=== PATIENT | male | born 1945 | race Hispanic/Latino ===

== ENCOUNTER 2017-01-27 20:07 | Inpatient (IN) | payer MEDICARE ==
[2017-01-27] MEDS ORDERED: NACL 0.9% 1000 ML 1,000 ML IV ONE (20:28)
--- NOTE | 2017-01-27 20:30 | Emergency Department Report ---
ED Shortness of Breath HPI - General Chief Complaint: Dyspnea/Respdistress Stated Complaint: SHORTNESS OF BREATH Time Seen by Provider: 01/27/17 20:22 Source: EMS Mode of arrival: Stretcher Limitations: No Limitations - History of Present Illness Initial Comments: 71-year-old male here with shortness of breath and dry mouth. Patient states she hasn't been had anything to drink for the last 6 days. He is unclear as to why this is. States his mouth is very dry and he doesn't feel like drinking. He also complains of some shortness of breath. Denies fevers chills nausea vomiting chest pain. He does complain of achiness all over. He also mentions that he has had some mild blurred vision. MD Complaint: shortness of breath -: Gradual Severity: mild Consistency: constant Improves With: nothing Worsens With: nothing Associated Symptoms: polydipsia - Related Data Allergies Allergy/AdvReac Type Severity Reaction Status Date / Time No Known Allergies Allergy Verified 04/06/16 01:45 ED Review of Systems ROS: Stated complaint: SHORTNESS OF BREATH Other details as noted in HPI Comment: All other systems reviewed and negative Constitutional: denies: chills, fever Eyes: denies: eye pain, eye discharge, vision change ENT: denies: ear pain, throat pain Respiratory: shortness of breath. denies: cough, wheezing Cardiovascular: denies: chest pain, palpitations Endocrine: no symptoms reported Gastrointestinal: denies: abdominal pain, nausea, diarrhea Genitourinary: denies: urgency, dysuria Musculoskeletal: denies: back pain, joint swelling, arthralgia Skin: denies: rash, lesions Neurological: denies: headache, weakness, paresthesias Psychiatric: denies: anxiety, depression Hematological/Lymphatic: denies: easy bleeding, easy bruising ED Past Medical Hx - Surgical History Past Surgical History?: No - Family History Family history: no significant - Social History Smoking Status: Current Every Day Smoker Substance Use Type: None ED Physical Exam - General Limitations: No Limitations General appearance: alert, in no apparent distress - Head Head exam: Present: atraumatic, normocephalic - Eye Eye exam: Present: normal appearance - ENT ENT exam: Present: normal orophraynx, mucous membranes dry (extremely dry) - Neck Neck exam: Present: normal inspection. Absent: lymphadenopathy - Respiratory Respiratory exam: Present: normal lung sounds bilaterally, other (tachypnea). Absent: respiratory distress, wheezes, rales - Cardiovascular Cardiovascular Exam: Present: normal rhythm, tachycardia. Absent: systolic murmur, diastolic murmur, rubs, gallop - GI/Abdominal GI/Abdominal exam: Present: soft, normal bowel sounds - Rectal Rectal exam: Present: deferred - Extremities Exam Extremities exam: Present: normal inspection - Back Exam Back exam: Present: normal inspection - Neurological Exam Neurological exam: Present: alert, oriented X3 - Psychiatric Psychiatric exam: Present: normal affect, normal mood - Skin Skin exam: Present: warm, dry, intact, normal color. Absent: rash ED Course Vital Signs 01/27/17 20:17 Temperature 97.6 F Pulse Rate 108 H Respiratory 13 Rate Blood Pressure 111/66 [Right] O2 Sat by Pulse 100 Oximetry ED Medical Decision Making - Lab Data Result diagrams: 01/27/17 20:45 01/27/17 20:45 - EKG Data -: EKG Interpreted by Me - EKG Data 01/27/17 20:27 Sinus tach 103 normal axis normal intervals and no ST-T wave changes - Medical Decision Making 71-year-old male here with dehydration and shortness of breath. Patient appears moderately dehydrated clinically. He is slightly tachycardic. It is unclear to me why he is not interested in consuming liquids at this point. Plan check labs UA chest x-ray EKG and plan to reassess. Plan to give IV fluids in the emergency department. Critical care attestation.: If time is entered above; I have spent that time in minutes in the direct care of this critically ill patient, excluding procedure time. ED Disposition Clinical Impression: Dehydration, Dyspnea Disposition: DC-09 OP ADMIT IP TO THIS HOSP Is pt being admited?: Yes Condition: Stable
[2017-01-27 21:14] LABS: Basophils % (Auto) 0.2 % (0.0-1.8); Eosinophils % (Auto) 0.4 % (0.0-4.3); Hemoglobin 7.1 gm/dl (11.8-15.2); Mean Corpuscular HGB Conc 33 % (32-34); Mean Corpuscular Hemoglobin 35 pg (28-32); Mean Corpuscular Volume 109 fl (84-94); Platelet Count 189 K/mm3 (140-440); Red Blood Count 2.02 M/mm3 (3.65-5.03); Red Cell Distribution Width 17.7 % (13.2-15.2); White Blood Count 7.2 K/mm3 (4.5-11.0)
[2017-01-27 21:24] LABS: Anion Gap 34 mmol/L; BUN/Creatinine Ratio 36.81; Blood Urea Nitrogen 81 mg/dL (9-20); Calcium 7.9 mg/dL (8.4-10.2); Carbon Dioxide 13 mmol/L (22-30); Chloride 103.7 mmol/L (98-107); Glucose 70 mg/dL (75-100); Potassium 3.6 mmol/L (3.6-5.0); Sodium 147 mmol/L (137-145)
[2017-01-27 21:26] LABS: Alanine Aminotransferase 12 units/L (7-56); Albumin 3.5 g/dL (3.9-5); Albumin/Globulin Ratio 1.5 %; Alkaline Phosphatase 38 units/L (35-129); Total Protein 5.8 g/dL (6.3-8.2)
[2017-01-27 21:27] LABS: Bilirubin,Direct < 0.2 mg/dL (0-0.2)
[2017-01-27] MEDS ORDERED: ZOFRAN IV PRN (23:42)
[2017-01-27] MEDS ORDERED: PROVENTIL IH PRN (23:42)
[2017-01-27] MEDS ORDERED: TYLENOL PO PRN (23:42)
[2017-01-27] MEDS ORDERED: DULCOLAX PR PRN (23:42)
[2017-01-27] MEDS ORDERED: MORPHINE IV PRN (23:42)
[2017-01-27] MEDS ORDERED: D5/0.45NS 1,000 ML IV SCH (23:45)
--- NOTE | 2017-01-27 23:45 | History and Physical Report ---
History of Present Illness Date of examination: 01/27/17 Date of admission: 01/27/17 Chief complaint: Generalized weakness Dry mouth Shortness of breath History of present illness: Patient is 71-year-old with no significant past history. He presents with generalized weakness, dry mouth and shortness of breath. He denies any chest pain. Patient states for the past 1 week he has not been drinking much and he feels very weak. In emergency department BUN 81 creatinine is 2.2. He has been started on IV fluids and will be admitted for acute kidney injury and dehydration. Past History Past Medical History: No medical history Past Surgical History: No surgical history Social history: alcohol abuse, full code. denies: smoking Family history: no significant family history Medications and Allergies Allergies Allergy/AdvReac Type Severity Reaction Status Date / Time No Known Allergies Allergy Verified 04/06/16 01:45 Home Medications Medication Instructions Recorded Confirmed Last Taken Type No Known Home Medications [No 01/27/17 01/27/17 Unknown History Reported Home Medications] Exam - Physical Exam Narrative exam: Gen appearance: Not in acute distress HEENT: normocephalic, atraumatic,dry tongue Neck: supple, no JVD, Lungs: Clear to auscultation bilaterally, no wheezes Heart :S1 and S2 regular, no murmurs, rubs or gallop Abdomen: Soft, non-tender, non-distended, normal bowel sounds. Extremities : No edema, no clubbing, or cyanosis Neuro: Awake, alert oriented 3, normal speech, no focal neurological signs - Constitutional Vitals: Temp Pulse Resp BP Pulse Ox 97.6 F 90 23 108/59 98 01/27/17 20:17 01/27/17 23:43 01/27/17 23:43 01/27/17 23:43 01/27/17 23:43 Results - Labs CBC & Chem 7: 01/27/17 20:45 01/27/17 20:45 Labs: Abnormal lab results 01/27/17 01/27/17 01/27/17 Range/Units 20:45 20:45 20:45 RBC 2.02 L (3.65-5.03) M/mm3 Hgb 7.1 L (11.8-15.2) gm/dl Hct 22.0 L (35.5-45.6) % MCV 109 H (84-94) fl MCH 35 H (28-32) pg RDW 17.7 H (13.2-15.2) % Lymph % (Auto) 12.0 L (13.4-35.0) % [place] % (Auto) 7.5 H (0.0-7.3) % Lymph # 0.9 L (1.2-5.4) K/mm3 Seg Neutrophils % 79.9 H (40.0-70.0) % Sodium 147 H (137-145) mmol/L Carbon Dioxide 13 L (22-30) mmol/L BUN 81 H (9-20) mg/dL Creatinine 2.2 H (0.8-1.5) mg/dL Glucose 70 L (75-100) mg/dL Calcium 7.9 L (8.4-10.2) mg/dL Total Protein 5.8 L (6.3-8.2) g/dL Albumin 3.5 L (3.9-5) g/dL Assessment and Plan Acute kidney injury secondary to ATN. Creatinine of 2.2. Admit to medical floor. Started on IV fluids Dehydration. iv fluids Shortness of breath. CXR ordered Hypernatremia. Repeat BMP in am Anemia hemoglobin of 7.1. Obtain stool occult blood. DVT prophylaxis with heparin Full CODE STATUS
[2017-01-27 23:58] LABS: Bilirubin,Urine NEG (Negative); Blood,Urine NEG (Negative); Ketones,Urine 20 mg/dL (Negative); Leukocyte Esterase,Urine NEG (Negative); Nitrite,Urine NEG (Negative); Protein,Urine <15 mg/dL mg/dL (Negative); RBC,Urine < 1.0 /HPF (0.0-6.0); Urobilinogen,Urine < 2.0 mg/dL (<2.0)
[2017-01-28] MEDS ORDERED: D5/0.45NS 1,000 ML IV ONE (00:08)
[2017-01-28] MEDS: HEPARIN SUB-Q SCH ×3 (05:43→23:31)
--- NOTE | 2017-01-28 07:28 | XRay Report ---
Single view chest: Compared to 04/06/16. History: Shortness of breath. Findings: Normal cardiomediastinal silhouette. Trachea is midline. No consolidation, pneumothorax or pleural effusion. Suspected old fractures left chest. There is also noted incompletely healed fracture proximal diaphysis of right humerus. Impression: Findings as detailed above.
--- NOTE | 2017-01-28 09:20 | Progress Note ---
Assessment and Plan Assessment and plan: Acute Blood loss Anemia Patient hemoglobin of 7.1 upon admission but on repeat CBC H&H 5.6/17.9 STAT Type and screen and transfusion 3 units of PRBC. Treat underlying cause and restore normal levels of red blood cells, hemoglobin to safe levels. IV Fluid GI consulted Closely monitor H&H Acute GI bleed Patient stool occult blood positive Started on IV Protonix GI consulted for possible Endoscope Closely monitor H&H Acute kidney injury/ Vasomotor Nephropathy Most likely due to dehydration IV fluid hydration, if serum creatinine does not improve with IV fluid we will consider nephrology. We will repeat BMP in the AM Dehydration IV fluid hydration Hypernatremia Most likely due to dehydartion Repeat BMP in am Closely monitor electrolytes Debility Physical therapy consulted DVT/GI prophylaxis Protonix IV Just SCD's due to active GI bleeding History Interval history: Patient complaining feeling dizzy, lightheadedness and tried Hospitalist Physical - Constitutional Vitals: Temp Pulse Resp BP Pulse Ox 97.7 F 95 H 20 113/61 98 01/28/17 00:47 01/28/17 00:47 01/28/17 00:47 01/28/17 00:47 01/28/17 00:47 General appearance: Present: no acute distress - EENT Eyes: Present: PERRL ENT: hearing intact - Neck Neck: Present: supple - Respiratory Respiratory effort: normal Respiratory: bilateral: CTA - Cardiovascular Heart rate: 75 Rhythm: regular Heart Sounds: Present: S1 & S2 - Extremities Extremities: no ischemia Peripheral Pulses: within normal limits - Abdominal General gastrointestinal: soft, non-tender - Integumentary Integumentary: Present: clear, warm, dry - Psychiatric Psychiatric: appropriate mood/affect - Neurologic Neurologic: CNII-XII intact - Allied Health Allied health notes reviewed: nursing Results - Labs CBC & Chem 7: 01/28/17 10:11 01/27/17 20:45 Labs: Laboratory Last Values WBC 7.2 K/mm3 (4.5-11.0) 01/27/17 20:45 RBC 2.02 M/mm3 (3.65-5.03) L 01/27/17 20:45 Hgb 7.1 gm/dl (11.8-15.2) L 01/27/17 20:45 Hct 22.0 % (35.5-45.6) L 01/27/17 20:45 MCV 109 fl (84-94) H 01/27/17 20:45 MCH 35 pg (28-32) H 01/27/17 20:45 MCHC 33 % (32-34) 01/27/17 20:45 RDW 17.7 % (13.2-15.2) H 01/27/17 20:45 Plt Count 189 K/mm3 (140-440) 01/27/17 20:45 Lymph % (Auto) 12.0 % (13.4-35.0) L 01/27/17 20:45 [place] % (Auto) 7.5 % (0.0-7.3) H 01/27/17 20:45 Eos % (Auto) 0.4 % (0.0-4.3) 01/27/17 20:45 Baso % (Auto) 0.2 % (0.0-1.8) 01/27/17 20:45 Lymph # 0.9 K/mm3 (1.2-5.4) L 01/27/17 20:45 [place] # 0.5 K/mm3 (0.0-0.8) 01/27/17 20:45 Eos # 0.0 K/mm3 (0.0-0.4) 01/27/17 20:45 Baso # 0.0 K/mm3 (0.0-0.1) 01/27/17 20:45 Seg Neutrophils % 79.9 % (40.0-70.0) H 01/27/17 20:45 Seg Neutrophils # 5.8 K/mm3 (1.8-7.7) 01/27/17 20:45 Sodium 147 mmol/L (137-145) H 01/27/17 20:45 Potassium 3.6 mmol/L (3.6-5.0) 01/27/17 20:45 Chloride 103.7 mmol/L (98-107) 01/27/17 20:45 Carbon Dioxide 13 mmol/L (22-30) L 01/27/17 20:45 Anion Gap 34 mmol/L 01/27/17 20:45 BUN 81 mg/dL (9-20) H 01/27/17 20:45 Creatinine 2.2 mg/dL (0.8-1.5) H 01/27/17 20:45 Estimated GFR 30 ml/min 01/27/17 20:45 BUN/Creatinine Ratio 36.81 % 01/27/17 20:45 Glucose 70 mg/dL (75-100) L 01/27/17 20:45 Calcium 7.9 mg/dL (8.4-10.2) L 01/27/17 20:45 Total Bilirubin 0.20 mg/dL (0.1-1.2) 01/27/17 20:45 Direct Bilirubin < 0.2 mg/dL (0-0.2) 01/27/17 20:45 Indirect Bilirubin 0.0 mg/dL 01/27/17 20:45 AST 10 units/L (5-40) 01/27/17 20:45 ALT 12 units/L (7-56) 01/27/17 20:45 Alkaline Phosphatase 38 units/L (35-129) 01/27/17 20:45 Troponin T < 0.010 ng/mL (0.00-0.029) 01/27/17 20:45 Total Protein 5.8 g/dL (6.3-8.2) L 01/27/17 20:45 Albumin 3.5 g/dL (3.9-5) L 01/27/17 20:45 Albumin/Globulin Ratio 1.5 % 01/27/17 20:45 Urine Color Yellow (Yellow) 01/27/17 23:43 Urine Turbidity Clear (Clear) 01/27/17 23:43 Urine pH 5.0 (5.0-7.0) 01/27/17 23:43 Ur Specific [place] 1.019 (1.003-1.030) 01/27/17 23:43 Urine Protein <15 mg/dl mg/dL (Negative) 01/27/17 23:43 Urine Glucose (UA) Neg mg/dL (Negative) 01/27/17 23:43 Urine Ketones 20 mg/dL (Negative) 01/27/17 23:43 Urine Blood Neg (Negative) 01/27/17 23:43 Urine Nitrite Neg (Negative) 01/27/17 23:43 Urine Bilirubin Neg (Negative) 01/27/17 23:43 Urine Urobilinogen < 2.0 mg/dL (<2.0) 01/27/17 23:43 Ur Leukocyte Esterase Neg (Negative) 01/27/17 23:43 Urine WBC (Auto) 1.0 /HPF (0.0-6.0) 01/27/17 23:43 Urine RBC (Auto) < 1.0 /HPF (0.0-6.0) 01/27/17 23:43
[2017-01-28 10:28] LABS: Basophils % (Auto) 0.2 % (0.0-1.8); Mean Corpuscular HGB Conc 32 % (32-34); Mean Corpuscular Hemoglobin 35 pg (28-32); Mean Corpuscular Volume 110 fl (84-94); Platelet Count 165 K/mm3 (140-440); Red Blood Count 1.63 M/mm3 (3.65-5.03); Red Cell Distribution Width 17.4 % (13.2-15.2); White Blood Count 5.9 K/mm3 (4.5-11.0)
[2017-01-28 10:31] LABS: Hematocrit 17.9 % (35.5-45.6); Hemoglobin 5.6 gm/dl (11.8-15.2)
[2017-01-28] MEDS ORDERED: NACL 0.9% 500 ML 500 ML IV ONE (10:35)
[2017-01-28] MEDS ORDERED: NACL 0.9% 1000 ML 1,000 ML IV SCH (11:00)
--- NOTE | 2017-01-28 11:15 | Gastroenterology Consultation ---
History of Present Illness - Reason for Consult Consult date: 01/28/17 GI bleed Requesting physician: KASSIDY AMAYA - History of Present Illness Mr. Her is a 71 y/o male admitted with progressive weakness and dehydration. On admission he was found to be anemic with heme positive stool. Overnight the patient had large loose black BM and H/H further decrease to 5.6/ 17. He states he has not noted black stools, but many years ago when he was consistently drinking Vodka daily, he did have a similar episode. NO abdominal pain or F/C. He is not on any home medications but occasionally takes Goody powders. He drinks beer daily, none x 1 week. NO prior EGD. Past History Past Medical History: No medical history, other (GI bleed years ago.) Past Surgical History: No surgical history Social history: alcohol abuse, full code. denies: smoking Family history: no significant family history Medications and Allergies Allergies Allergy/AdvReac Type Severity Reaction Status Date / Time No Known Allergies Allergy Verified 04/06/16 01:45 Home Medications Medication Instructions Recorded Confirmed Last Taken Type No Known Home Medications [No 01/27/17 01/27/17 Unknown History Reported Home Medications] Active Meds: Active Medications Acetaminophen (Tylenol) 650 mg PO Q4H PRN PRN Reason: Pain MILD(1-3)/Fever >100.5/LUND Albuterol (Proventil) 2.5 mg IH Q3HRT PRN PRN Reason: Shortness Of Breath Bisacodyl (Dulcolax) 10 mg OK QDAY PRN PRN Reason: Constipation unrelieved by MOM Heparin Sodium (Porcine) (Heparin) 5,000 unit SUB-Q Q8HR CANDY Last Admin: 01/28/17 05:43 Dose: 5,000 unit Dextrose/Sodium Chloride (D5/0.45ns) 1,000 mls @ 100 mls/hr IV DIRECT CANDY Last Admin: 01/28/17 00:51 Dose: 100 mls/hr Sodium Chloride (Nacl 0.9% 500 Ml) 500 mls @ 0 mls/hr IV ONCE ONE PRN Reason: As Directed Stop: 01/28/17 10:36 Sodium Chloride (Nacl 0.9% 1000 Ml) 1,000 mls @ 100 mls/hr IV DIRECT CANDY Morphine Sulfate (Morphine) 2 mg IV Q4H PRN PRN Reason: Pain, Moderate (4-6) Ondansetron HCl (Zofran) 4 mg IV Q6H PRN PRN Reason: nausea or vomiting Pantoprazole Sodium (Protonix) 40 mg IV BID [facility] Review of Systems - Review of Systems All systems: negative Constitutional: fatigue, weakness, poor appetite Gastrointestinal: melena Exam - Constitutional Vital Signs: Temp Pulse Resp BP Pulse Ox 98.1 F 79 20 100/62 98 01/28/17 10:00 01/28/17 10:00 01/28/17 10:00 01/28/17 10:00 01/28/17 10:00 General appearance: no acute distress - EENT Eyes: EOM intact ENT: hearing intact - Neck Neck: supple - Respiratory Respiratory: bilateral: CTA - Cardiovascular Rhythm: regular Heart Sounds: Present: S1 & S2 Extremities: pulses intact - Gastrointestinal General gastrointestinal: Present: soft, non-tender, non-distended, normal bowel sounds - Integumentary Integumentary: Present: warm, dry, pale - Neurologic Neurological: alert and oriented x3 - Psychiatric Psychiatric: appropriate mood/affect, cooperative - Labs CBC & Chem 7: 01/28/17 10:11 01/27/17 20:45 Lab Results: Laboratory Results - last 24 hr 01/27/17 01/28/17 23:43 10:11 WBC 5.9 RBC 1.63 L Hgb 5.6 L* Hct 17.9 L* MCV 110 H MCH 35 H MCHC 32 RDW 17.4 H Plt Count 165 Lymph % (Auto) 19.6 [place] % (Auto) 7.0 Eos % (Auto) 1.0 Baso % (Auto) 0.2 Lymph # 1.1 L [place] # 0.4 Eos # 0.1 Baso # 0.0 Seg Neutrophils % 72.2 H Seg Neutrophils # 4.2 Urine Color Yellow Urine Turbidity Clear Urine pH 5.0 Ur Specific [place] 1.019 Urine Protein <15 mg/dl Urine Glucose (UA) Neg Urine Ketones 20 Urine Blood Neg Urine Nitrite Neg Urine Bilirubin Neg Urine Urobilinogen < 2.0 Ur Leukocyte Esterase Neg Urine WBC (Auto) 1.0 Urine RBC (Auto) < 1.0 Assessment and Plan 1. Melena 2. Macrocytic anemia 3. ARF 4. Hypernatremia -Keep NPO, patient will need to be transfused and will tentatively plan for EGD later today. -PPI gtt -No NSAIDS or blood thinning meds. -Further recommendations to follow EGD. -
[2017-01-28] MEDS ORDERED: PROTONIX IV SCH (12:00)
[2017-01-28] MEDS: PROTONIX 80 MG in NACL 0.9% 100 ML IV SCH (14:16)
[2017-01-28] MEDS ORDERED: WATER FOR IRRIG STERILE IR ONE (15:40)
[2017-01-28] MEDS ORDERED: NACL 0.9% 1000 ML 1,000 ML ONE (16:08)
[2017-01-28] MEDS ORDERED: DIPRIVAN 10 MG/ML IV ONE (16:25)
--- NOTE | 2017-01-28 16:25 | Admit Criteria Form ---
Admission Criteria Documentation: DEHYDRATION Clinical Indications for Admission to Inpatient Care ([place]/check or initial the applicable condition/criteria) Admission is indicated for 1 or more of the following (1)(2)(3) [ ]I. Serious cause for dehydration requiring acute hospitalization(e.g., bowel obstruction, increased intracranial pressure, infectious cause) [X]II. Inpatient admission required [A] rather than observation care (see Dehydration:Observation Care guideline as appropriate)because of ANY ONE of the following (4)(5) [ ]a) Vomiting that is severe or persistent [X]a) Dehydration that is severe or persistent [ ]a) IV fluid required rather than oral rehydration to replace significant ongoing(eg, for greater than 24 hours)losses(greater than3 L/ [id number]) (6) [ ]a) Parenteral nutrition regimen that must be implemented on inpatient basis [ ]a) Other condition, treatment, or monitoring requiring inpatient admission Extended stay beyond goal length of stay may be needed for (1)(2)(3)(9) [ ]a) Chronic severe dehydration [ ]b) Persistent vital sign changes, severe electrolyte imbalance, or diagnosed cause of dehydration that requires continued hospitalization(e.g., bowel obstruction, increased intracranial pressure) [ ]c) Severe comorbid illness (e.g., renal failure, heart failure, poorly controlled diabetes) [ ]d) Older patients (75 years or older) The original [employer] content created by [employer] has been revised. The portions of the content which have been revised are identified through the use of italic text or in bold, and [facility] has neither reviewed nor approved the modified material. All other unmodified content is copyright [employer]. Please see references footnoted in the original [employer] edition 2017 Admission Criteria Met: Yes
[2017-01-28] MEDS ORDERED: AMIDATE IV ONE (16:30)
--- NOTE | 2017-01-28 16:44 | Anesthesia Consultation ---
Anesthesia Consult and Med Hx Date of service: 01/28/17 - Airway Anesthetic Teeth Evaluation: Poor (lots missing and black) ROM Head & Neck: Adequate Mental/Hyoid Distance: Adequate Mallampati Class: Class II Intubation Access Assessment: Probably Good - Pulmonary Exam CTA: Yes - Cardiac Exam Cardiac Exam: RRR - Pre-Operative Health Status ASA Pre-Surgery Classification: ASA3 Proposed Anesthetic Plan: MAC - Central Nervous System Hx Psychiatric Problems: No - Hematic Hx Anemia: Yes - Other Systems Hx Alcohol Use: Yes (1 beer a day)
--- NOTE | 2017-01-28 16:44 | Anesthesia Day of Surgery ---
Anesthesia Day of Surgery - Day of Surgery Patient Examined: Yes Patient H&P Reviewed: Yes Patient is NPO: Yes
--- NOTE | 2017-01-28 16:55 | Post Operative Note ---
Pre-op diagnosis: GI BLEED Post-op diagnosis: same Findings: RGD: hiatal hernia - probable Barretts' - gastritis - 8-10 mm white based slightly cratered ulcer duodenum bulb (bx's) - negative other Procedure: EGD Anesthesia: MAC Surgeon: JASMYNE ROSE Estimated blood loss: none Pathology: list Specimen disposition: to lab Condition: stable Disposition: floor
[2017-01-28 19:39] VITALS: BP 102/72
[2017-01-28 23:35] LABS: Hematocrit 23.8 % (35.5-45.6); Hemoglobin 7.7 gm/dl (11.8-15.2)
--- NOTE | 2017-01-28 23:42 | Operative Report ---
PROCEDURE: EGD with cold biopsies. INDICATION: 1. Anemia. 2. GI bleed. MEDICATIONS: Propofol per CHEMICAL INSPECTOR. COMPLICATIONS: None. DESCRIPTION OF PROCEDURE: The patient brought to the procedure suite. The patient had the procedure discussed with him at length. All risks, complications, and benefits discussed, which the patient signed for the procedure to be performed. The patient placed in left decubitus position. Mouth block was placed in the patient's oral cavity. After adequate sedation medication as above, an endoscope was introduced into the mouth and brought to the level of the second portion of duodenum. Retroflexion view performed. The patient's vital signs remained stable throughout the procedure. FINDINGS: There was noted to be a medium hiatal hernia at GE junction. 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 The esophagus otherwise appeared to be normal. Mild antral gastritis noted. Biopsies were taken and sent to Pathology. The remaining stomach otherwise appeared to be normal. There was 8-10 mm mainly white-based ulcer with cratered center, but no active stigmata noted in the distal duodenal bulb. Biopsies were taken and sent to Pathology. The remaining duodenum otherwise appeared to be normal. Retroflexion view performed in the stomach showed no other pathology other than noted above. The patient tolerated the procedure well. No complications during the procedure. IMPRESSION: 1. Hiatal hernia. 2. Possible Brandt's. 3. Gastritis, biopsies performed. 4. Ulcer duodenal bulb, probable source of bleeding, biopsy performed. 5. Otherwise, normal esophagogastroduodenoscopy. RECOMMENDATIONS: 1. Follow up biopsy results. 2. Stool for H. pylori, if positive, treat. 3. PPI IV b.i.d. 4. Follow hematocrit and transfuse as needed. 5. We will follow up in a.m. JOB# [id number] CAB/NTS
[2017-01-29] MEDS ORDERED: PROTONIX 80 MG in NACL 0.9% 100 ML IV SCH (01:00)
[2017-01-29 04:42] LABS: Basophils % (Auto) 0.4 % (0.0-1.8); Hemoglobin 8.3 gm/dl (11.8-15.2); Mean Corpuscular HGB Conc 33 % (32-34); Mean Corpuscular Hemoglobin 33 pg (28-32); Mean Corpuscular Volume 98 fl (84-94); Platelet Count 139 K/mm3 (140-440); Red Blood Count 2.55 M/mm3 (3.65-5.03); Red Cell Distribution Width 18.4 % (13.2-15.2); White Blood Count 4.9 K/mm3 (4.5-11.0)
[2017-01-29 04:57] LABS: Alanine Aminotransferase 8 units/L (7-56); Albumin 2.7 g/dL (3.9-5); Albumin/Globulin Ratio 1.5 %; Alkaline Phosphatase 32 units/L (35-129); BUN/Creatinine Ratio 27.14; Bilirubin,Direct < 0.2 mg/dL (0-0.2); Bilirubin,Indirect 0.2 mg/dL; Blood Urea Nitrogen 19 mg/dL (9-20); Calcium 7.4 mg/dL (8.4-10.2); Carbon Dioxide 22 mmol/L (22-30); Chloride 105.2 mmol/L (98-107); Glucose 95 mg/dL (75-100); Potassium 3.7 mmol/L (3.6-5.0); Sodium 137 mmol/L (137-145); Total Protein 4.5 g/dL (6.3-8.2)
[2017-01-29 05:02] LABS: Anion Gap 14 mmol/L
[2017-01-29] MEDS: PROTONIX 80 MG in NACL 0.9% 100 ML IV SCH ×2 (05:03→05:06)
[2017-01-29] MEDS: HEPARIN SUB-Q SCH ×2 (05:14→13:33)
--- NOTE | 2017-01-29 10:06 | Progress Note ---
Hospitalist Physical - Constitutional Vitals: Temp Pulse Resp BP Pulse Ox 97.6 F 72 16 102/72 100 01/28/17 19:31 01/28/17 19:31 01/28/17 19:31 01/28/17 19:31 01/29/17 08:10 General appearance: Present: no acute distress Results - Labs CBC & Chem 7: 01/29/17 04:10 01/29/17 04:10 Labs: Laboratory Last Values WBC 4.9 K/mm3 (4.5-11.0) 01/29/17 04:10 RBC 2.55 M/mm3 (3.65-5.03) L 01/29/17 04:10 Hgb 8.3 gm/dl (11.8-15.2) L 01/29/17 04:10 Hct 25.0 % (35.5-45.6) L 01/29/17 04:10 MCV 98 fl (84-94) H 01/29/17 04:10 MCH 33 pg (28-32) H 01/29/17 04:10 MCHC 33 % (32-34) 01/29/17 04:10 RDW 18.4 % (13.2-15.2) H 01/29/17 04:10 Plt Count 139 K/mm3 (140-440) L 01/29/17 04:10 Lymph % (Auto) 23.1 % (13.4-35.0) 01/29/17 04:10 [place] % (Auto) 8.3 % (0.0-7.3) H 01/29/17 04:10 Eos % (Auto) 1.0 % (0.0-4.3) 01/29/17 04:10 Baso % (Auto) 0.4 % (0.0-1.8) 01/29/17 04:10 Lymph # 1.1 K/mm3 (1.2-5.4) L 01/29/17 04:10 [place] # 0.4 K/mm3 (0.0-0.8) 01/29/17 04:10 Eos # 0.0 K/mm3 (0.0-0.4) 01/29/17 04:10 Baso # 0.0 K/mm3 (0.0-0.1) 01/29/17 04:10 Seg Neutrophils % 67.2 % (40.0-70.0) 01/29/17 04:10 Seg Neutrophils # 3.3 K/mm3 (1.8-7.7) 01/29/17 04:10 Sodium 137 mmol/L (137-145) D 01/29/17 04:10 Potassium 3.7 mmol/L (3.6-5.0) 01/29/17 04:10 Chloride 105.2 mmol/L (98-107) 01/29/17 04:10 Carbon Dioxide 22 mmol/L (22-30) D 01/29/17 04:10 Anion Gap 14 mmol/L 01/29/17 04:10 BUN 19 mg/dL (9-20) 01/29/17 04:10 Creatinine 0.7 mg/dL (0.8-1.5) L D 01/29/17 04:10 Estimated GFR > 60 ml/min 01/29/17 04:10 BUN/Creatinine Ratio 27.14 % 01/29/17 04:10 Glucose 95 mg/dL (75-100) 01/29/17 04:10 Calcium 7.4 mg/dL (8.4-10.2) L 01/29/17 04:10 Magnesium 2.40 mg/dL (1.7-2.3) H 01/29/17 04:10 Total Bilirubin 0.40 mg/dL (0.1-1.2) 01/29/17 04:10 Direct Bilirubin < 0.2 mg/dL (0-0.2) 01/29/17 04:10 Indirect Bilirubin 0.2 mg/dL 01/29/17 04:10 AST 11 units/L (5-40) 01/29/17 04:10 ALT 8 units/L (7-56) 01/29/17 04:10 Alkaline Phosphatase 32 units/L (35-129) L 01/29/17 04:10 Troponin T < 0.010 ng/mL (0.00-0.029) 01/27/17 20:45 Total Protein 4.5 g/dL (6.3-8.2) L D 01/29/17 04:10 Albumin 2.7 g/dL (3.9-5) L 01/29/17 04:10 Albumin/Globulin Ratio 1.5 % 01/29/17 04:10 Urine Color Yellow (Yellow) 01/27/17 23:43 Urine Turbidity Clear (Clear) 01/27/17 23:43 Urine pH 5.0 (5.0-7.0) 01/27/17 23:43 Ur Specific [place] 1.019 (1.003-1.030) 01/27/17 23:43 Urine Protein <15 mg/dl mg/dL (Negative) 01/27/17 23:43 Urine Glucose (UA) Neg mg/dL (Negative) 01/27/17 23:43 Urine Ketones 20 mg/dL (Negative) 01/27/17 23:43 Urine Blood Neg (Negative) 01/27/17 23:43 Urine Nitrite Neg (Negative) 01/27/17 23:43 Urine Bilirubin Neg (Negative) 01/27/17 23:43 Urine Urobilinogen < 2.0 mg/dL (<2.0) 01/27/17 23:43 Ur Leukocyte Esterase Neg (Negative) 01/27/17 23:43 Urine WBC (Auto) 1.0 /HPF (0.0-6.0) 01/27/17 23:43 Urine RBC (Auto) < 1.0 /HPF (0.0-6.0) 01/27/17 23:43 Blood Type AB POSITIVE 01/28/17 11:39 Antibody Screen Negative 01/28/17 11:39 Crossmatch See Detail 01/28/17 11:39
[2017-01-29 10:44] LABS: Hematocrit 29.4 % (35.5-45.6); Hemoglobin 9.4 gm/dl (11.8-15.2)
--- NOTE | 2017-01-29 13:03 | Discharge Summary ---
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 Reason for admission: generalized weakness and shortness of breath Condition: Fair Pertinent studies: Chest x-ray; all fractures of the left chest pain completely healed fractures of proximal diaphysis of the right humerus EGD with cold biopsies; Hiatal hernia Possible Brandt's Gastritis biopsies done Ulcer duodenal bulb probably the source of bleeding status post biopsy Rest of it is normal Hospital course: 71-year-old male patient with no significant past medical history except for alcohol abuse was admitted through emergency room with worsening shortness of breath and chills and general weakness Initially evaluated and noted to have anemia with hemoglobin of 7.1 Patient was admitted to the hospital symptomatically managed, stool for occult blood was positive, repeat hemoglobin in the morning was 5.4, requiring 3 units of PRBC transfusion GI has evaluated the patient, patient underwent EGD findings of which are as mentioned above Patient strongly advised to avoid NSAIDs, smoking cessation counseling done advised to quit smoking Counseling done patient strongly advised to quit alcohol Today he is comfortable in bed hemoglobin is stable more than 9, no evidence of bleeding, vital signs are stable Ambulatory and tolerating oral nutrition, physical examination at the time of discharge no new changes Patient is hemodynamically and clinically stable for discharge, his management consult for assistance with discharge Final diagnosis; Acute blood loss anemia requiring blood transfusion Acute GI bleeding resolved Acute gastritis status post biopsy Ongoing tobacco use Alcohol abuse Moderate to severe protein calorie malnutrition Disposition: DC-01 TO HOME OR SELFCARE Time spent for discharge: 31 min Core Measure Documentation - Palliative Care Palliative Care/ Comfort Measures: Not Applicable - Core Measures Any of the following diagnoses?: none Exam - Constitutional Vitals: Temp Pulse Resp BP Pulse Ox 97.6 F 72 20 102/72 100 01/28/17 19:31 01/28/17 19:31 01/29/17 10:00 01/28/17 19:31 01/29/17 08:10 General appearance: Present: no acute distress, well-nourished - EENT Eyes: Present: PERRL, EOM intact - Neck Neck: Present: supple, normal ROM - Respiratory Respiratory effort: normal Respiratory: negative: rales, rhonchi, wheezing - Cardiovascular Rhythm: regular Heart Sounds: Present: S1 & S2 - Extremities Extremities: no ischemia, No edema Peripheral Pulses: within normal limits - Abdominal General gastrointestinal: Present: soft, non-tender, non-distended, normal bowel sounds - Integumentary Integumentary: Present: clear, warm - Musculoskeletal Musculoskeletal: strength equal bilaterally - Psychiatric Psychiatric: appropriate mood/affect, cooperative - Neurologic Neurologic: CNII-XII intact, moves all extremities Plan Activity: no restrictions Diet: regular, other (advised to quit alcohol intyake) Additional Instructions: Quit alcohol intake. If you have any vomiting blood or blood in the stool ,contact MD or go to ER Follow up with: PRIMARY CARE, [Primary Care Provider] - 3-5 Days JASMYNE ROSE MD [Staff Physician] - 7 Days Prescriptions: RX: Folic Acid [Folvite] 1 mg PO QDAY #30 tablet Pantoprazole [Protonix] 40 mg PO BID #60 tablet RX: Thiamine [Vitamin B-1] 100 mg PO QDAY #30 tablet
== END 2017-01-29 17:20 | disposition home or self-care (01) | DRG 377 ==
LOC: ED 20:07 → CC2 23:42
PROVIDERS: ADMIT Internal Medicine; ATTEND Internal Medicine
PROC: 30233N1 Transfusion of Nonautologous Red Blood Cells into Peripheral Vein, Percutaneous Approach (ICD-10-PCS; principal; 2017-01-28)
PROC: 0DB68ZX Excision of Stomach, Via Natural or Artificial Opening Endoscopic, Diagnostic (ICD-10-PCS; 2017-01-28)
PROC: 0DB98ZX Excision of Duodenum, Via Natural or Artificial Opening Endoscopic, Diagnostic (ICD-10-PCS; 2017-01-28)
DX: K26.4 Chronic or unspecified duodenal ulcer with hemorrhage (principal); N17.0 Acute kidney failure with tubular necrosis; E43 Unspecified severe protein-calorie malnutrition; E87.0 Hyperosmolality and hypernatremia; D62 Acute posthemorrhagic anemia; E86.0 Dehydration; F17.210 Nicotine dependence, cigarettes, uncomplicated; F10.10 Alcohol abuse, uncomplicated; K44.9 Diaphragmatic hernia without obstruction or gangrene; K22.70 Barrett's esophagus without dysplasia; K29.70 Gastritis, unspecified, without bleeding; Z71.6 Tobacco abuse counseling; Z71.41 Alcohol abuse counseling and surveillance of alcoholic; Z68.21 Body mass index [BMI] 21.0-21.9, adult
CPT/HCPCS: 36415; 71010; 80048; 80074; 81001; 82270; 83735; 84484; 85014; 85018; 85025; 86850; 86900; 86901; 86920; 88305; 88342; 93005; 93010; 94760; 96360; C9113; G8978-GP; G8979-GP; G8980-GP; J1644; J2704; J7030; J7040; P9016

== ENCOUNTER 2020-01-07 12:54 | Inpatient (IN) | payer MEDICARE ==
[2020-01-07] MEDS ORDERED: SODIUM CHLORIDE 0.9% 1000 ML IV SOLN IV ONE (13:27)
--- NOTE | 2020-01-07 13:42 | Emergency Department Report ---
ED General Adult HPI - General Chief complaint: Weakness Stated complaint: SOB Time Seen by Provider: 01/07/20 13:16 Source: EMS Mode of arrival: Stretcher Limitations: No Limitations - History of Present Illness Initial comments: The patient presents to the emergency department with a chief complaint of feeling weak. Patient states he normally takes multiple walks a day but today he felt really weak and could not complete his walk. The patient has a history of COPD. Patient's O2 sats on EMS arrival 88% on room air. Patient's blood pressure was 89/59 upon EMS arrival. Patient received 800 cc of fluid in route with his blood pressure increased into approximately 97/50 -: Sudden Severity scale (0 -10): 0 Consistency: constant Improves with: none Worsens with: none Associated Symptoms: denies other symptoms Treatments Prior to Arrival: none - Related Data Previous Rx's Medication Instructions Recorded Last Taken Type Folic Acid [Folvite] 1 mg PO QDAY #30 tablet 01/29/17 Unknown Rx Pantoprazole [Protonix] 40 mg PO BID #60 tablet 01/29/17 Unknown Rx Thiamine [Vitamin B-1] 100 mg PO QDAY #30 tablet 01/29/17 Unknown Rx Allergies Allergy/AdvReac Type Severity Reaction Status Date / Time No Known Allergies Allergy Verified 04/06/16 01:45 ED Review of Systems ROS: Stated complaint: SOB Other details as noted in HPI Constitutional: weakness. denies: chills, fever Eyes: denies: eye pain, eye discharge, vision change ENT: denies: ear pain, throat pain Respiratory: denies: cough, shortness of breath, wheezing Cardiovascular: denies: chest pain, palpitations Endocrine: no symptoms reported Gastrointestinal: denies: abdominal pain, nausea, diarrhea Genitourinary: denies: urgency, dysuria Musculoskeletal: denies: back pain, joint swelling, arthralgia Skin: denies: rash, lesions Neurological: denies: headache, weakness, paresthesias Psychiatric: denies: anxiety, depression Hematological/Lymphatic: denies: easy bleeding, easy bruising ED Past Medical Hx - Social History Smoking Status: Former Smoker - Medications Home Medications: Home Medications Medication Instructions Recorded Confirmed Last Taken Type Folic Acid [Folvite] 1 mg PO QDAY #30 tablet 01/29/17 Unknown Rx Pantoprazole [Protonix] 40 mg PO BID #60 tablet 01/29/17 Unknown Rx Thiamine [Vitamin B-1] 100 mg PO QDAY #30 tablet 01/29/17 Unknown Rx ED Physical Exam - General Limitations: No Limitations General appearance: alert, in no apparent distress - Head Head exam: Present: atraumatic, normocephalic - Eye Eye exam: Present: normal appearance, PERRL, EOMI - ENT ENT exam: Present: mucous membranes moist - Neck Neck exam: Present: normal inspection - Respiratory Respiratory exam: Present: decreased breath sounds. Absent: respiratory distress - Cardiovascular Cardiovascular Exam: Present: normal rhythm, tachycardia. Absent: systolic murmur, diastolic murmur, rubs, gallop - GI/Abdominal GI/Abdominal exam: Present: soft, normal bowel sounds. Absent: distended, tenderness - Rectal Rectal exam: Present: deferred - Extremities Exam Extremities exam: Present: normal inspection - Back Exam Back exam: Present: normal inspection - Neurological Exam Neurological exam: Present: alert, oriented X3, CN II-XII intact. Absent: motor sensory deficit - Psychiatric Psychiatric exam: Present: normal affect, normal mood - Skin Skin exam: Present: warm, dry, intact, normal color. Absent: rash ED Course Vital Signs 01/07/20 01/07/20 01/07/20 13:10 14:28 19:55 Temperature 98.4 F Pulse Rate 101 H 101 H 98 H Respiratory 17 20 Rate Blood Pressure 95/64 93/56 91/64 [Left] O2 Sat by Pulse 95 99 97 Oximetry ED Medical Decision Making - Lab Data Result diagrams: 01/07/20 13:36 01/07/20 19:15 Lab Results 01/07/20 01/07/20 01/07/20 Range/Units 13:36 13:36 13:36 WBC 5.3 (4.5-11.0) K/mm3 RBC 3.84 (3.65-5.03) M/mm3 Hgb 13.1 (11.8-15.2) gm/dl Hct 39.0 (35.5-45.6) % MCV 102 H (84-94) fl MCH 34 H (28-32) pg MCHC 34 (32-34) % RDW 16.1 H (13.2-15.2) % Plt Count 111 L (140-440) K/mm3 Lymph % (Auto) 13.0 L (13.4-35.0) % Hooker % (Auto) 7.0 (0.0-7.3) % Eos % (Auto) 0.3 (0.0-4.3) % Baso % (Auto) 0.6 (0.0-1.8) % Lymph # 0.7 L (1.2-5.4) K/mm3 Hooker # 0.4 (0.0-0.8) K/mm3 Eos # 0.0 (0.0-0.4) K/mm3 Baso # 0.0 (0.0-0.1) K/mm3 Seg Neutrophils % 79.1 H (40.0-70.0) % Seg Neutrophils # 4.2 (1.8-7.7) K/mm3 D-Dimer (0-234) ng/mlDDU Sodium 137 (137-145) mmol/L Potassium 3.5 L (3.6-5.0) mmol/L Chloride 98.5 (98-107) mmol/L Carbon Dioxide 21 L (22-30) mmol/L Anion Gap 21 mmol/L BUN 19 (9-20) mg/dL Creatinine 1.3 (0.8-1.5) mg/dL Estimated GFR 54 ml/min BUN/Creatinine Ratio 15 % Glucose 99 (75-100) mg/dL Lactic Acid 2.90 H* (0.7-2.0) mmol/L Calcium 8.6 (8.4-10.2) mg/dL Total Bilirubin 1.00 (0.1-1.2) mg/dL AST 45 H (5-40) units/L ALT 30 (7-56) units/L Alkaline Phosphatase 64 (35-129) units/L Troponin T 0.283 H* (0.00-0.029) ng/mL NT-Pro-B Natriuret Pep (0-900) pg/mL Total Protein 6.7 (6.3-8.2) g/dL Albumin 3.4 L (3.9-5) g/dL Albumin/Globulin Ratio 1.0 % Urine Color (Yellow) Urine Turbidity (Clear) Urine pH (5.0-7.0) Ur Specific Warren (1.003-1.030) Urine Protein (Negative) mg/dL Urine Glucose (UA) (Negative) mg/dL Urine Ketones (Negative) mg/dL Urine Blood (Negative) Urine Nitrite (Negative) Urine Bilirubin (Negative) Urine Ictotest (Negative) Urine Urobilinogen (<2.0) mg/dL Ur Leukocyte Esterase (Negative) Urine WBC (Auto) (0.0-6.0) /HPF Urine RBC (Auto) (0.0-6.0) /HPF U Epithel Cells (Auto) (0-13.0) /HPF Hyaline Casts /LPF Urine Mucus /HPF 01/07/20 01/07/20 01/07/20 Range/Units 13:36 15:19 19:15 WBC (4.5-11.0) K/mm3 RBC (3.65-5.03) M/mm3 Hgb (11.8-15.2) gm/dl Hct (35.5-45.6) % MCV (84-94) fl MCH (28-32) pg MCHC (32-34) % RDW (13.2-15.2) % Plt Count (140-440) K/mm3 Lymph % (Auto) (13.4-35.0) % Hooker % (Auto) (0.0-7.3) % Eos % (Auto) (0.0-4.3) % Baso % (Auto) (0.0-1.8) % Lymph # (1.2-5.4) K/mm3 Hooker # (0.0-0.8) K/mm3 Eos # (0.0-0.4) K/mm3 Baso # (0.0-0.1) K/mm3 Seg Neutrophils % (40.0-70.0) % Seg Neutrophils # (1.8-7.7) K/mm3 D-Dimer 1327.30 H (0-234) ng/mlDDU Sodium (137-145) mmol/L Potassium (3.6-5.0) mmol/L Chloride (98-107) mmol/L Carbon Dioxide (22-30) mmol/L Anion Gap mmol/L BUN (9-20) mg/dL Creatinine (0.8-1.5) mg/dL Estimated GFR ml/min BUN/Creatinine Ratio % Glucose (75-100) mg/dL Lactic Acid (0.7-2.0) mmol/L Calcium (8.4-10.2) mg/dL Total Bilirubin (0.1-1.2) mg/dL AST (5-40) units/L ALT (7-56) units/L Alkaline Phosphatase (35-129) units/L Troponin T (0.00-0.029) ng/mL NT-Pro-B Natriuret Pep 79277 H (0-900) pg/mL Total Protein (6.3-8.2) g/dL Albumin (3.9-5) g/dL Albumin/Globulin Ratio % Urine Color Sheila (Yellow) Urine Turbidity Slightly-cloudy (Clear) Urine pH 5.0 (5.0-7.0) Ur Specific Warren 1.026 (1.003-1.030) Urine Protein 30 mg/dl (Negative) mg/dL Urine Glucose (UA) Neg (Negative) mg/dL Urine Ketones Tr (Negative) mg/dL Urine Blood Neg (Negative) Urine Nitrite Neg (Negative) Urine Bilirubin Sm (Negative) Urine Ictotest Negative (Negative) Urine Urobilinogen 4.0 (<2.0) mg/dL Ur Leukocyte Esterase Tr (Negative) Urine WBC (Auto) 12.0 H (0.0-6.0) /HPF Urine RBC (Auto) 2.0 (0.0-6.0) /HPF U Epithel Cells (Auto) < 1.0 (0-13.0) /HPF Hyaline Casts 3 /LPF Urine Mucus 3+ /HPF - EKG Data -: EKG Interpreted by Me EKG shows normal: sinus rhythm Rate: tachycardia - EKG Data Interpretation: other (Inverted T waves lateral leads) - Medical Decision Making Patient's O2 sats increased to 96% on 2 L nasal cannula Patient received a 1500 cc bolus of IV fluid and his blood pressure increased to 97/60 IV antibiotics given Critical Care Time: Yes Critical care time in (mins) excluding proc time.: 35 Critical care attestation.: If time is entered above; I have spent that time in minutes in the direct care of this critically ill patient, excluding procedure time. ED Disposition Clinical Impression: Sepsis, UTI (urinary tract infection), Hypotension Disposition: OP ADMIT IP TO THIS HOSP Is pt being admited?: Yes Does the pt Need Aspirin: Yes Condition: Fair Referrals: PRIMARY CARE, [Primary Care Provider] - 3-5 Days
[2020-01-07 14:02] LABS: Basophils % (Auto) 0.6 % (0.0-1.8); Eosinophils % (Auto) 0.3 % (0.0-4.3); Hemoglobin 13.1 gm/dl (11.8-15.2); Lymphocytes # (Auto) 0.7 K/mm3 (1.2-5.4); Mean Corpuscular HGB Conc 34 % (32-34); Mean Corpuscular Volume 102 fl (84-94); Monocytes # (Auto) 0.4 K/mm3 (0.0-0.8); Platelet Count 111 K/mm3 (140-440); Red Blood Count 3.84 M/mm3 (3.65-5.03); Red Cell Distribution Width 16.1 % (13.2-15.2)
[2020-01-07] MEDS: CEFEPIME/NS 2 GM/100 ML 2 GM/100 ML BAG IV SCH ×2 (14:21→23:55)
[2020-01-07 14:24] LABS: Albumin 3.4 g/dL (3.9-5); Calcium 8.6 mg/dL (8.4-10.2)
--- NOTE | 2020-01-07 14:59 | XRay Report ---
CHEST 1 VIEW INDICATION: sob. COMPARISON: 01/27/2017 FINDINGS: Support devices: None. Heart: Within normal limits. Lungs/Pleura: No acute air space or interstitial disease. Additional findings: The bony structures are osteopenic. Multiple chronic appearing left rib fracture s, left clavicle fracture and right proximal humeral fracture are noted. IMPRESSION: No acute findings. Signer Name: Axel Barba Jr, MD Signed: 01/07/2020 2:55 PM Workstation Name: [id number]
[2020-01-07 16:55] LABS: Bilirubin,Urine SM (Negative); Blood,Urine NEG (Negative); Color,Urine Amber (Yellow); Hyaline Casts,Urine 3 /LPF; Mucus,Urine 3+ /HPF
[2020-01-07 17:12] LABS: Ictotest,Urine Negative (Negative)
[2020-01-07] MEDS ORDERED: FUROSEMIDE 40 MG/4 ML INJ IV ONE (18:57)
[2020-01-07] MEDS ORDERED: ASPIRIN 81 MG TAB CHEW PO ONE (19:55)
[2020-01-07] MEDS ORDERED: ACETAMINOPHEN 325 MG TAB PO PRN (22:06)
[2020-01-07] MEDS ORDERED: ONDANSETRON 4 MG/2 ML INJ IV PRN (22:06)
[2020-01-07] MEDS ORDERED: MAGNESIUM HYDROXIDE (MOM) ORAL LIQD UDC PO PRN (22:06)
[2020-01-07] MEDS ORDERED: MORPHINE 2 MG/1 ML INJ IV PRN (22:11)
[2020-01-07] MEDS ORDERED: NITROGLYCERIN 0.4 MG TAB SUBL SL PRN (22:11)
[2020-01-07] MEDS ORDERED: SODIUM CHLORIDE 0.9% 1000 ML 1,000 ML IV SCH (22:15)
--- NOTE | 2020-01-07 22:19 | History and Physical Report ---
History of Present Illness Date of examination: 01/07/20 Date of admission: 01/07/20 19:56 Chief complaint: Generalized weakness History of present illness: 74-year-old male with known history of COPD presenting to the emergency room today complaining of generalized weakness. He has also been having some shortness of breath. Denies any cough, no chest pain, denies any fever or chills, no nausea vomiting, no diarrhea, no abdominal pain, no hematuria or dysuria. En route to the hospital patient oxygen saturation was said to be in the upper 80s on room air, blood pressure was also found to be low with systolic in the 80s and diastolic in the 50s. Patient received some IV fluid in the emergency room with improvement in his blood pressure. Work-up in the emergency room reveals a UTI with accompanying sepsis. Patient had elevated troponin however he has denied any chest pain Past History Past Medical History: COPD Past Surgical History: No surgical history Social history: smoking (Quit tobacco use 3 years ago) Family history: no significant family history Medications and Allergies Allergies Allergy/AdvReac Type Severity Reaction Status Date / Time No Known Allergies Allergy Verified 04/06/16 01:45 Home Medications Medication Instructions Recorded Confirmed Last Taken Type Folic Acid [Folvite] 1 mg PO QDAY #30 tablet 01/29/17 01/08/20 Unknown Rx Pantoprazole [Protonix] 40 mg PO BID #60 tablet 01/29/17 01/08/20 Unknown Rx Thiamine [Vitamin B-1] 100 mg PO QDAY #30 tablet 01/29/17 01/08/20 Unknown Rx Active Meds: Active Medications Acetaminophen (Tylenol) 650 mg PO Q4H PRN PRN Reason: Pain MILD(1-3)/Fever >100.5/LUND Albuterol/Ipratropium (Duoneb *Not For Prn Use*) 1 ampul IH Q4HRT CANDY Aspirin (Ecotrin) 325 mg PO QDAY CANDY Cefepime HCl (Cefepime/Ns 2 Gm/100 Ml) 2 gm in 100 mls @ 200 mls/hr IV Q8H CANDY; Protocol Last Admin: 01/07/20 14:21 Dose: 200 mls/hr Documented by: Sodium Chloride (Nacl 0.9% 1000 Ml) 1,000 mls @ 75 mls/hr IV DIRECT CANDY Magnesium Hydroxide (Milk Of Magnesia) 30 ml PO Q4H PRN PRN Reason: Constipation Methylprednisolone Sodium Succinate (Solu-Medrol) 40 mg IV Q8HR CANDY Morphine Sulfate (Morphine) 2 mg IV Q5MIN PRN PRN Reason: Chest Pain unrelieved by NTG Nitroglycerin (Nitrostat) 0.4 mg SL Q5M PRN PRN Reason: Chest Pain Ondansetron HCl (Zofran) 4 mg IV Q8H PRN PRN Reason: Nausea And Vomiting Sodium Chloride (Sodium Chloride Flush Syringe 10 Ml) 10 ml IV BID CANDY Sodium Chloride (Sodium Chloride Flush Syringe 10 Ml) 10 ml IV PRN PRN PRN Reason: LINE FLUSH Sodium Chloride (Sodium Chloride Flush Syringe 10 Ml) 10 ml IV PRN PRN PRN Reason: LINE FLUSH Review of Systems Constitutional: fatigue, weakness, no fever, no chills Cardiovascular: no chest pain, no palpitations Respiratory: shortness of breath, no cough Gastrointestinal: no abdominal pain, no nausea, no vomiting, no diarrhea Genitourinary Male: no dysuria, no hematuria, no flank pain Musculoskeletal: no neck stiffness, no low back pain Integumentary: no rash, no pruritis Neurological: no headaches, no confusion Psychiatric: no anxiety, no depression Exam - Constitutional Vitals: Temp Pulse Resp BP Pulse Ox 98.4 F 98 H 20 91/64 97 01/07/20 13:10 01/07/20 19:55 01/07/20 19:55 01/07/20 19:55 01/07/20 19:55 General appearance: Present: no acute distress, well-nourished - EENT Eyes: Present: PERRL, EOM intact ENT: hearing intact, clear oral mucosa, dentition normal - Neck Neck: Present: supple, normal ROM. Absent: carotid bruits - Respiratory Respiratory effort: normal Respiratory: bilateral: wheezing (Few scattered wheezes) - Cardiovascular Rhythm: regular Heart Sounds: Present: S1 & S2. Absent: gallop, systolic murmur, diastolic murmur, rub - Extremities Extremities: no ischemia, pulses intact, pulses symmetrical, No edema, Full ROM - Abdominal General gastrointestinal: Present: soft, non-tender, non-distended, normal bowel sounds. Absent: mass - Integumentary Integumentary: Present: clear, warm, dry, normal turgor. Absent: jaundice, rash - Musculoskeletal Musculoskeletal: strength equal bilaterally - Psychiatric Psychiatric: appropriate mood/affect, intact judgment & insight, memory intact, cooperative - Neurologic Neurologic: CNII-XII intact, no focal deficits, moves all extremities HEART Score - HEART Score Troponin: Troponin T 0.283 ng/mL (0.00-0.029) H* 01/07/20 13:36 Results - Labs CBC & Chem 7: 01/07/20 23:23 01/07/20 23:23 Labs: Abnormal lab results 01/07/20 01/07/20 01/07/20 Range/Units 13:36 13:36 13:36 MCV 102 H (84-94) fl MCH 34 H (28-32) pg RDW 16.1 H (13.2-15.2) % Plt Count 111 L (140-440) K/mm3 Lymph % (Auto) 13.0 L (13.4-35.0) % Lymph # 0.7 L (1.2-5.4) K/mm3 Seg Neutrophils % 79.1 H (40.0-70.0) % D-Dimer (0-234) ng/mlDDU Potassium 3.5 L (3.6-5.0) mmol/L Carbon Dioxide 21 L (22-30) mmol/L Glucose (75-100) mg/dL Lactic Acid 2.90 H* (0.7-2.0) mmol/L AST 45 H (5-40) units/L Troponin T 0.283 H* (0.00-0.029) ng/mL NT-Pro-B Natriuret Pep (0-900) pg/mL Albumin 3.4 L (3.9-5) g/dL Urine WBC (Auto) (0.0-6.0) /HPF 01/07/20 01/07/20 01/07/20 Range/Units 13:36 15:19 18:40 MCV (84-94) fl MCH (28-32) pg RDW (13.2-15.2) % Plt Count (140-440) K/mm3 Lymph % (Auto) (13.4-35.0) % Lymph # (1.2-5.4) K/mm3 Seg Neutrophils % (40.0-70.0) % D-Dimer (0-234) ng/mlDDU Potassium (3.6-5.0) mmol/L Carbon Dioxide (22-30) mmol/L Glucose (75-100) mg/dL Lactic Acid 2.10 H* (0.7-2.0) mmol/L AST (5-40) units/L Troponin T (0.00-0.029) ng/mL NT-Pro-B Natriuret Pep 74817 H (0-900) pg/mL Albumin (3.9-5) g/dL Urine WBC (Auto) 12.0 H (0.0-6.0) /HPF 01/07/20 01/07/20 Range/Units 19:15 19:15 MCV (84-94) fl MCH (28-32) pg RDW (13.2-15.2) % Plt Count (140-440) K/mm3 Lymph % (Auto) (13.4-35.0) % Lymph # (1.2-5.4) K/mm3 Seg Neutrophils % (40.0-70.0) % D-Dimer 1327.30 H (0-234) ng/mlDDU Potassium (3.6-5.0) mmol/L Carbon Dioxide (22-30) mmol/L Glucose 104 H (75-100) mg/dL Lactic Acid (0.7-2.0) mmol/L AST (5-40) units/L Troponin T (0.00-0.029) ng/mL NT-Pro-B Natriuret Pep (0-900) pg/mL Albumin (3.9-5) g/dL Urine WBC (Auto) (0.0-6.0) /HPF Assessment and Plan - Patient Problems (1) Dyspnea Current Visit: No Status: Acute Plan to address problem: Possibly secondary to COPD exacerbation. Patient placed on nebulizing treatments and IV steroid. We will keep O2 saturation greater or equal to 92%. (2) Hypotension Current Visit: Yes Status: Acute Plan to address problem: Possibly secondary to dehydration. He has been placed on IV fluid maintain improvement in blood pressure. (3) Sepsis Current Visit: Yes Status: Acute Plan to address problem: Possibly secondary to the UTI. Patient placed on empiric IV antibiotics and IV fluid. (4) UTI (urinary tract infection) Current Visit: Yes Status: Acute Plan to address problem: We will await urine culture result. We will also continue on empiric IV antibiotics. (5) Elevated troponin Current Visit: Yes Status: Acute Plan to address problem: EKG has been within normal limits. Patient denies any chest pain. Will check serial cardiac enzymes and place patient on daily aspirin. Also place patient on sublingual nitroglycerin and IV morphine as needed. Patient will be scheduled for stress test. We will request cardiology evaluation and recommendation. (6) DVT prophylaxis Current Visit: Yes Status: Acute Plan to address problem: Patient placed on subcutaneous heparin. (7) Full code status Current Visit: Yes Status: Acute
[2020-01-07 23:56] LABS: Basophils # (Auto) 0.1 K/mm3 (0.0-0.1); Basophils % (Auto) 1.7 % (0.0-1.8); Eosinophils # (Auto) 0.1 K/mm3 (0.0-0.4); Eosinophils % (Auto) 2.3 % (0.0-4.3); Hematocrit 35.8 % (35.5-45.6); Hemoglobin 12.1 gm/dl (11.8-15.2); Lymphocytes # (Auto) 0.6 K/mm3 (1.2-5.4); Lymphocytes % (Auto) 11.7 % (13.4-35.0); Mean Corpuscular HGB Conc 34 % (32-34); Mean Corpuscular Volume 102 fl (84-94); Monocytes # (Auto) 0.3 K/mm3 (0.0-0.8); Monocytes % (Auto) 6.3 % (0.0-7.3); Platelet Count 107 K/mm3 (140-440); Red Blood Count 3.51 M/mm3 (3.65-5.03); Red Cell Distribution Width 16.8 % (13.2-15.2)
[2020-01-08 00:14] LABS: Calcium 8.1 mg/dL (8.4-10.2)
[2020-01-08] MEDS: IPRATROPIUM/ALBUTEROL SULFATE 3 ML AMPUL.NEB IH SCH ×6 (02:32→19:43)
[2020-01-08 03:15] LABS: C-Reactive Protein 1.8 mg/dL (0.00-1.30)
[2020-01-08 03:19] LABS: Chol/HDL Ratio 2.6 %
[2020-01-08] MEDS ORDERED: HEPARIN 5,000 UNIT/1 ML VIAL SUB-Q SCH (06:00)
[2020-01-08 06:12] LABS: Basophils % (Auto) 0.6 % (0.0-1.8); Eosinophils # (Auto) 0.1 K/mm3 (0.0-0.4); Hematocrit 34.4 % (35.5-45.6); Hemoglobin 11.4 gm/dl (11.8-15.2); Lymphocytes # (Auto) 1.2 K/mm3 (1.2-5.4); Lymphocytes % (Auto) 29.8 % (13.4-35.0); Mean Corpuscular HGB Conc 33 % (32-34); Mean Corpuscular Volume 101 fl (84-94); Monocytes # (Auto) 0.3 K/mm3 (0.0-0.8); Monocytes % (Auto) 8.3 % (0.0-7.3); Red Blood Count 3.41 M/mm3 (3.65-5.03)
[2020-01-08 06:17] LABS: Platelet Count 92 K/mm3 (140-440)
[2020-01-08 06:32] LABS: INR 1.05 (0.87-1.13)
[2020-01-08 06:41] LABS: Alanine Aminotransferase 23 units/L (7-56); Albumin 3.1 g/dL (3.9-5); BUN/Creatinine Ratio 21; Blood Urea Nitrogen 19 mg/dL (9-20); Hemolysis Index 5
[2020-01-08] MEDS: methylPREDNISolone Sod Succinate 40 MG/1 ML INJ IV SCH ×3 (06:43→22:40)
[2020-01-08] MEDS: CEFEPIME/NS 2 GM/100 ML 2 GM/100 ML BAG IV SCH ×3 (06:51→22:39)
[2020-01-08] MEDS ORDERED: REGADENOSON 0.4 MG/5 ML INJ IV ONE (09:00)
--- NOTE | 2020-01-08 10:31 | Consultation ---
History of Present Illness Consult date: 01/08/20 Requesting physician: SINA DANIELSON Consult reason: elevated troponin History of present illness: The patient is a 74 YO male with a past medical history of COPD. He is previously unknown to our practice. He is COVID-19 PUI and thus HPI is obtained per the chart. He presented to the ED with c/o feeling weak. Patient states he normally takes multiple walks a day but yesterday he felt really weak and could not complete his walk. He has also been having some shortness of breath. Denies any cough, no chest pain, denies any fever or chills, no nausea vomiting, no diarrhea, no abdominal pain, no hematuria or dysuria. Patient's O2 sats on EMS arrival 88% on room air. Patient's blood pressure was 89/59 upon EMS arr ival. Patient received 800 cc of fluid in route with his blood pressure increased into approximately 97/50. Work-up in the emergency room reveals a UTI with accompanying sepsis. Patient was found to have significantly elevated troponin however he has denied any occurrence of chest pain. Past History Past Medical History: COPD Past Surgical History: No surgical history Social history: smoking (Quit tobacco use 3 years ago) Family history: no significant family history Medications and Allergies Allergies Allergy/AdvReac Type Severity Reaction Status Date / Time No Known Allergies Allergy Verified 04/06/16 01:45 Home Medications Medication Instructions Recorded Confirmed Last Taken Type Folic Acid [Folvite] 1 mg PO QDAY #30 tablet 01/29/17 01/08/20 Unknown Rx Pantoprazole [Protonix] 40 mg PO BID #60 tablet 01/29/17 01/08/20 Unknown Rx Thiamine [Vitamin B-1] 100 mg PO QDAY #30 tablet 01/29/17 01/08/20 Unknown Rx Active Meds: Active Medications Acetaminophen (Tylenol) 650 mg PO Q4H PRN PRN Reason: Pain MILD(1-3)/Fever >100.5/LUND Albuterol/Ipratropium (Duoneb *Not For Prn Use*) 1 ampul IH Q4HRT [facility] Last Admin: 01/08/20 08:10 Dose: 1 ampul Documented by: Aspirin (Ecotrin) 325 mg PO QDAY [facility] Heparin Sodium (Porcine) (Heparin) 5,000 unit SUB-Q Q8HR [facility] Last Admin: 01/08/20 06:43 Dose: 5,000 unit Documented by: Cefepime HCl (Cefepime/Ns 2 Gm/100 Ml) 2 gm in 100 mls @ 200 mls/hr IV Q8H [facility]; Protocol Last Admin: 01/08/20 06:51 Dose: 200 mls/hr Documented by: Sodium Chloride (Nacl 0.9% 1000 Ml) 1,000 mls @ 75 mls/hr IV DIRECT [facility] Last Admin: 01/07/20 23:56 Dose: 75 mls/hr Documented by: Magnesium Hydroxide (Milk Of Magnesia) 30 ml PO Q4H PRN PRN Reason: Constipation Methylprednisolone Sodium Succinate (Solu-Medrol) 40 mg IV Q8HR [facility] Last Admin: 01/08/20 06:43 Dose: 40 mg Documented by: Morphine Sulfate (Morphine) 2 mg IV Q5MIN PRN PRN Reason: Chest Pain unrelieved by NTG Nitroglycerin (Nitrostat) 0.4 mg SL Q5M PRN PRN Reason: Chest Pain Ondansetron HCl (Zofran) 4 mg IV Q8H PRN PRN Reason: Nausea And Vomiting Sodium Chloride (Sodium Chloride Flush Syringe 10 Ml) 10 ml IV BID [facility] Sodium Chloride (Sodium Chloride Flush Syringe 10 Ml) 10 ml IV PRN PRN PRN Reason: LINE FLUSH Review of Systems Constitutional: fatigue, no weight loss, no weight gain, no fever, no chills, no sweats Ears, nose, mouth and throat: no ear pain, no nose pain, no sinus pressure, no sinus pain Cardiovascular: shortness of breath, no chest pain, no orthopnea, no palpitations, no rapid/irregular heart beat, no edema, no syncope, no lightheadedness Respiratory: shortness of breath, no cough, no congestion, no wheezing, no pain on inspiration Gastrointestinal: no abdominal pain, no nausea, no vomiting, no diarrhea, no constipation, no change in bowel habits Genitourinary Male: no dysuria, no hematuria, no flank pain, no discharge, no urinary frequency, no urinary hesitancy Musculoskeletal: no neck stiffness, no neck pain, no shooting arm pain, no arm numbness/tingling, no low back pain, no shooting leg pain Integumentary: no rash, no pruritis, no redness, no sores, no wounds Neurological: no head injury, no paralysis, no weakness, no parathesias, no numbness, no tingling, no seizures, no syncope Psychiatric: no anxiety Endocrine: no cold intolerance, no heat intolerance Hematologic/Lymphatic: no easy bruising, no easy bleeding Allergic/Immunologic: no urticaria Physical Examination Vital Signs Temp Pulse Resp BP Pulse Ox 98.4 F 101 H 17 95/64 95 01/07/20 13:10 01/07/20 13:10 01/07/20 13:10 01/07/20 13:10 01/07/20 13:10 Narrative exam: agree with physical examination per primary team as pt is COVID-19 PUI Results 01/08/20 05:40 01/08/20 05:40 Cardiac Enzymes 01/07/20 01/07/20 01/08/20 Range/Units 13:36 19:15 05:40 AST 45 H 35 (5-40) units/L Lactate Dehydrogenase 190 H (91-180) units/L Coagulation 01/08/20 Range/Units 05:40 PT 13.9 (12.2-14.9) Sec. INR 1.05 (0.87-1.13) Lipids 01/07/20 Range/Units 13:36 Triglycerides 78 (2-149) mg/dL Cholesterol 180 (50-199) mg/dL HDL Cholesterol 69 H (40-59) mg/dL Cholesterol/HDL Ratio 2.60 % CBC 01/07/20 01/07/20 01/08/20 Range/Units 13:36 23:23 05:40 WBC 5.3 5.1 4.0 L (4.5-11.0) K/mm3 RBC 3.84 3.51 L 3.41 L (3.65-5.03) M/mm3 Hgb 13.1 12.1 11.4 L (11.8-15.2) gm/dl Hct 39.0 35.8 34.4 L (35.5-45.6) % Plt Count 111 L 107 L 92 L (140-440) K/mm3 Lymph # 0.7 L 0.6 L 1.2 (1.2-5.4) K/mm3 Garvin # 0.4 0.3 0.3 (0.0-0.8) K/mm3 Eos # 0.0 0.1 0.1 (0.0-0.4) K/mm3 Baso # 0.0 0.1 0.0 (0.0-0.1) K/mm3 Comprehensive Metabolic Panel 01/07/20 01/07/20 01/07/20 Range/Units 13:36 19:15 23:23 Sodium 137 138 (137-145) mmol/L Potassium 3.5 L 3.4 L (3.6-5.0) mmol/L Chloride 98.5 99.8 (98-107) mmol/L Carbon Dioxide 21 L 23 (22-30) mmol/L BUN 19 23 H (9-20) mg/dL Creatinine 1.3 1.2 (0.8-1.5) mg/dL Glucose 99 104 H 89 (75-100) mg/dL Calcium 8.6 8.1 L (8.4-10.2) mg/dL AST 45 H (5-40) units/L ALT 30 (7-56) units/L Alkaline Phosphatase 64 (35-129) units/L Total Protein 6.7 (6.3-8.2) g/dL Albumin 3.4 L (3.9-5) g/dL 01/08/20 Range/Units 05:40 Sodium 137 (137-145) mmol/L Potassium 3.0 L (3.6-5.0) mmol/L Chloride 102.5 (98-107) mmol/L Carbon Dioxide 22 (22-30) mmol/L BUN 19 (9-20) mg/dL Creatinine 0.9 (0.8-1.5) mg/dL Glucose 94 (75-100) mg/dL Calcium 8.0 L (8.4-10.2) mg/dL AST 35 (5-40) units/L ALT 23 (7-56) units/L Alkaline Phosphatase 51 (35-129) units/L Total Protein 5.7 L (6.3-8.2) g/dL Albumin 3.1 L (3.9-5) g/dL - Imaging and Cardiology EKG: report reviewed, image reviewed EKG interpretations - Telemetry EKG Rhythm: Sinus Rhythm - EKG Sinus rhythms and dysrhythmias: sinus rhythm Repolarization changes or abnormalities: ST or T wave suggestive of ischemia Assessment and Plan COVID-19 test pending. Corina noted to be c/w NSTEMI, ECG suggestive of ischemia. Cont ASA 325, initiate statin, no BB at this time in setting of borderline low BPs. Initiate heparin gtt, cont to trend Corina and f/u ECG in AM. Pending result of COVID-19 test, consider coronary angiography in AM. NPO after MN. Obtain echo. Recommend transfer to telemetry floor for more specialized cardiac care and close monitoring per primary team. D/w primary. Further recs to follow per hospital course. The patient has been seen in conjunction with Dr. Mitchell Keenan who agrees with the assessment and plan of care. - Patient Problems (1) NSTEMI (non-ST elevated myocardial infarction) Current Visit: Yes Status: Acute (2) Abnormal ECG Current Visit: Yes Status: Acute (3) Suspected COVID-19 virus infection Current Visit: Yes Status: Acute (4) UTI (urinary tract infection) Current Visit: Yes Status: Acute (5) Sepsis Current Visit: Yes Status: Suspected (6) COPD (chronic obstructive pulmonary disease) Current Visit: Yes Status: Chronic (7) Hypoxia Current Visit: Yes Status: Acute (8) Lactic acidosis Current Visit: Yes Status: Acute (9) Elevated d-dimer Current Visit: Yes Status: Acute
[2020-01-08] MEDS ORDERED: HEPARIN 10,000 UNITS/10 ML VIAL IV ONE (10:45)
[2020-01-08] MEDS: HEPARIN/ 0.45% NACL DRIP 25,000 UNIT/500 ML BAG IV SCH (12:36)
[2020-01-08] MEDS ORDERED: POTASSIUM CHLORIDE ER 20 MEQ TAB PO ONE ×2 (13:30→15:08)
--- NOTE | 2020-01-08 13:52 | Progress Note ---
Assessment and Plan This is a 74-year-old male with known history of COPD presenting to the emergency room complaining of generalized weakness and shortness of breath. Denies any cough, no chest pain, denies any fever or chills, no nausea vomiting, no diarrhea, no abdominal pain, no hematuria or dysuria NSTEMI-elevated troponine Abnormal EKG staff appraiser consulted Nuclear stress test was cancelled due pending Covid 19 test. Will f/u with covid 19 result patient senies chest pain and shortness of breath Suspected Covid 19 Virus infection Continue Airborne and respiratory Isolation Monitor inflammatory maker patient on room air calm and not in any distress Elevated inflammatory [id number] 1327, LDH 190, CRP 1.80, and Ferrintin 672 ID following f Sepsis likely due to UTI Continue IV hydration with IV NS at 75 cc/hr elderly pt-monitor for fluid overload Continue empiric abx therapy urine and blood culture-f/u with result COPD-stable pt report tobacco use -quit 30 years ago pt on room-stable Hypokalemia-replaced Replace potassium PRN Am lab BMP Hypotension-bp stable Continue IV hydration S/p IV bolus-in ER DVT Prophylaxis-heparin 01/08/20 Stress test cancelled-waiting for Covid test. Subjective Date of service: 01/08/20 Interval history: Patient seen-awake, on room air, not in any distress he denies any respiratory distress. Stress test ordered-not done-pending covid test result H Objective - Constitutional Vitals: Vital Signs - 12hr 01/08/20 01/08/20 01/08/20 03:24 03:31 03:41 Temperature Pulse Rate Pulse Rate [ Bilateral Throughout] Respiratory Rate Respiratory Rate [Bilateral Throughout] Blood Pressure 153/89 142/82 146/85 O2 Sat by Pulse Oximetry 01/08/20 01/08/20 01/08/20 04:01 05:00 05:43 Temperature 98.6 F Pulse Rate 116 H 88 Pulse Rate [ Bilateral Throughout] Respiratory 20 Rate Respiratory Rate [Bilateral Throughout] Blood Pressure 128/63 128/63 105/69 O2 Sat by Pulse 97 Oximetry 01/08/20 01/08/20 01/08/20 08:18 10:00 13:48 Temperature Pulse Rate Pulse Rate [ 93 H Bilateral Throughout] Respiratory 20 Rate Respiratory 18 Rate [Bilateral Throughout] Blood Pressure O2 Sat by Pulse 95 Oximetry General appearance: Present: no acute distress - Respiratory Respiratory effort: normal (on room air) - Integumentary Integumentary: decreased turgor (frail appearing elderly patient) - Psychiatric Psychiatric: appropriate mood/affect, cooperative - Allied health notes Allied health notes reviewed: nursing - Labs CBC & Chem 7: 01/08/20 13:30 01/08/20 05:40 Labs: Abnormal lab results 01/07/20 01/07/20 01/07/20 Range/Units 13:36 13:36 13:36 WBC (4.5-11.0) K/mm3 RBC (3.65-5.03) M/mm3 Hgb (11.8-15.2) gm/dl Hct (35.5-45.6) % MCV 102 H (84-94) fl MCH 34 H (28-32) pg RDW 16.1 H (13.2-15.2) % Plt Count 111 L (140-440) K/mm3 Lymph % (Auto) 13.0 L (13.4-35.0) % [place] % (Auto) (0.0-7.3) % Lymph # 0.7 L (1.2-5.4) K/mm3 Seg Neutrophils % 79.1 H (40.0-70.0) % D-Dimer (0-234) ng/mlDDU Potassium 3.5 L (3.6-5.0) mmol/L Carbon Dioxide 21 L (22-30) mmol/L BUN (9-20) mg/dL Glucose (75-100) mg/dL Lactic Acid 2.90 H* (0.7-2.0) mmol/L Calcium (8.4-10.2) mg/dL Ferritin (13.0-400.0) ng/mL AST 45 H (5-40) units/L Lactate Dehydrogenase (91-180) units/L Troponin T 0.283 H* (0.00-0.029) ng/mL C-Reactive Protein (0.00-1.30) mg/dL NT-Pro-B Natriuret Pep (0-900) pg/mL Total Protein (6.3-8.2) g/dL Albumin 3.4 L (3.9-5) g/dL HDL Cholesterol 69 H (40-59) mg/dL Urine WBC (Auto) (0.0-6.0) /HPF 01/07/20 01/07/20 01/07/20 Range/Units 13:36 15:19 18:40 WBC (4.5-11.0) K/mm3 RBC (3.65-5.03) M/mm3 Hgb (11.8-15.2) gm/dl Hct (35.5-45.6) % MCV (84-94) fl MCH (28-32) pg RDW (13.2-15.2) % Plt Count (140-440) K/mm3 Lymph % (Auto) (13.4-35.0) % [place] % (Auto) (0.0-7.3) % Lymph # (1.2-5.4) K/mm3 Seg Neutrophils % (40.0-70.0) % D-Dimer (0-234) ng/mlDDU Potassium (3.6-5.0) mmol/L Carbon Dioxide (22-30) mmol/L BUN (9-20) mg/dL Glucose (75-100) mg/dL Lactic Acid 2.10 H* (0.7-2.0) mmol/L Calcium (8.4-10.2) mg/dL Ferritin (13.0-400.0) ng/mL AST (5-40) units/L Lactate Dehydrogenase (91-180) units/L Troponin T (0.00-0.029) ng/mL C-Reactive Protein (0.00-1.30) mg/dL NT-Pro-B Natriuret Pep 51074 H (0-900) pg/mL Total Protein (6.3-8.2) g/dL Albumin (3.9-5) g/dL HDL Cholesterol (40-59) mg/dL Urine WBC (Auto) 12.0 H (0.0-6.0) /HPF 01/07/20 01/07/20 01/07/20 Range/Units 19:15 19:15 19:15 WBC (4.5-11.0) K/mm3 RBC (3.65-5.03) M/mm3 Hgb (11.8-15.2) gm/dl Hct (35.5-45.6) % MCV (84-94) fl MCH (28-32) pg RDW (13.2-15.2) % Plt Count (140-440) K/mm3 Lymph % (Auto) (13.4-35.0) % [place] % (Auto) (0.0-7.3) % Lymph # (1.2-5.4) K/mm3 Seg Neutrophils % (40.0-70.0) % D-Dimer 1327.30 H (0-234) ng/mlDDU Potassium (3.6-5.0) mmol/L Carbon Dioxide (22-30) mmol/L BUN (9-20) mg/dL Glucose 104 H (75-100) mg/dL Lactic Acid (0.7-2.0) mmol/L Calcium (8.4-10.2) mg/dL Ferritin 672.9 H (13.0-400.0) ng/mL AST (5-40) units/L Lactate Dehydrogenase 190 H (91-180) units/L Troponin T (0.00-0.029) ng/mL C-Reactive Protein 1.80 H (0.00-1.30) mg/dL NT-Pro-B Natriuret Pep (0-900) pg/mL Total Protein (6.3-8.2) g/dL Albumin (3.9-5) g/dL HDL Cholesterol (40-59) mg/dL Urine WBC (Auto) (0.0-6.0) /HPF 01/07/20 01/07/20 01/08/20 Range/Units 23:23 23:23 05:40 WBC 4.0 L (4.5-11.0) K/mm3 RBC 3.51 L 3.41 L (3.65-5.03) M/mm3 Hgb 11.4 L (11.8-15.2) gm/dl Hct 34.4 L (35.5-45.6) % MCV 102 H 101 H (84-94) fl MCH 34 H 33 H (28-32) pg RDW 16.8 H 17.0 H (13.2-15.2) % Plt Count 107 L 92 L (140-440) K/mm3 Lymph % (Auto) 11.7 L (13.4-35.0) % [place] % (Auto) 8.3 H (0.0-7.3) % Lymph # 0.6 L (1.2-5.4) K/mm3 Seg Neutrophils % 78.0 H (40.0-70.0) % D-Dimer (0-234) ng/mlDDU Potassium 3.4 L (3.6-5.0) mmol/L Carbon Dioxide (22-30) mmol/L BUN 23 H (9-20) mg/dL Glucose (75-100) mg/dL Lactic Acid (0.7-2.0) mmol/L Calcium 8.1 L (8.4-10.2) mg/dL Ferritin (13.0-400.0) ng/mL AST (5-40) units/L Lactate Dehydrogenase (91-180) units/L Troponin T (0.00-0.029) ng/mL C-Reactive Protein (0.00-1.30) mg/dL NT-Pro-B Natriuret Pep (0-900) pg/mL Total Protein (6.3-8.2) g/dL Albumin (3.9-5) g/dL HDL Cholesterol (40-59) mg/dL Urine WBC (Auto) (0.0-6.0) /HPF 01/08/20 01/08/20 Range/Units 05:40 05:40 WBC (4.5-11.0) K/mm3 RBC (3.65-5.03) M/mm3 Hgb (11.8-15.2) gm/dl Hct (35.5-45.6) % MCV (84-94) fl MCH (28-32) pg RDW (13.2-15.2) % Plt Count (140-440) K/mm3 Lymph % (Auto) (13.4-35.0) % [place] % (Auto) (0.0-7.3) % Lymph # (1.2-5.4) K/mm3 Seg Neutrophils % (40.0-70.0) % D-Dimer (0-234) ng/mlDDU Potassium 3.0 L (3.6-5.0) mmol/L Carbon Dioxide (22-30) mmol/L BUN (9-20) mg/dL Glucose (75-100) mg/dL Lactic Acid (0.7-2.0) mmol/L Calcium 8.0 L (8.4-10.2) mg/dL Ferritin (13.0-400.0) ng/mL AST (5-40) units/L Lactate Dehydrogenase (91-180) units/L Troponin T 0.211 H* D (0.00-0.029) ng/mL C-Reactive Protein (0.00-1.30) mg/dL NT-Pro-B Natriuret Pep (0-900) pg/mL Total Protein 5.7 L (6.3-8.2) g/dL Albumin 3.1 L (3.9-5) g/dL HDL Cholesterol (40-59) mg/dL Urine WBC (Auto) (0.0-6.0) /HPF HEART Score - HEART Score Troponin: Troponin T 0.211 ng/mL (0.00-0.029) H* D 01/08/20 05:40
[2020-01-08] MEDS: ASPIRIN EC 325 MG TAB PO SCH (13:55)
[2020-01-08 14:35] LABS: Hematocrit 36.4 % (35.5-45.6)
--- NOTE | 2020-01-09 01:28 | Cat Scan Report ---
CTA CHEST WITH IV CONTRAST INDICATION: Acute onset chest pain with dyspnea TECHNIQUE: Axial CT images were obtained through the chest after injection of 100 mL IV contrast. 3 plane MIP re constructions were produced. All CT scans at this location are performed using CT dose reduction for ALARA by means of automated exposure control. COMPARISON: None available. FINDINGS: PULMONARY ARTERIES: No pulmonary emboli. AORTA AND ARTERIES: No acute abnormality. Extensive coronary artery calcification. MEDIASTINUM: No mass, lymphadenopathy or other significant abnormality. The heart is normal in size w ithout a pericardial effusion. The trachea and main bronchi are patent and normal in caliber. LUNGS: No suspicious consolidation, nodule or mass. No pneumothorax or pleural effusion. ADDITIONAL FINDINGS: None. UPPER ABDOMEN: No acute findings. BONES: Diffuse osteopenia. Multiple healed fractures throughout both ribs as well as the proximal rig ht humerus. IMPRESSION: 1. No CT evidence for pulmonary embolism. 2. No acute intrathoracic findings.. Signer Name: Rikki Thompson MD Signed: 01/09/2020 1:24 AM Workstation Name: [id number]
[2020-01-09 06:22] LABS: Hematocrit 34.5 % (35.5-45.6); Hemoglobin 11.3 gm/dl (11.8-15.2); Mean Corpuscular HGB Conc 33 % (32-34); Mean Corpuscular Volume 103 fl (84-94); Red Blood Count 3.36 M/mm3 (3.65-5.03); Red Cell Distribution Width 16.7 % (13.2-15.2)
[2020-01-09 06:27] LABS: Platelet Count 94 K/mm3 (140-440)
[2020-01-09] MEDS: CEFEPIME/NS 2 GM/100 ML 2 GM/100 ML BAG IV SCH ×2 (06:28→15:45)
[2020-01-09] MEDS: methylPREDNISolone Sod Succinate 40 MG/1 ML INJ IV SCH ×2 (06:29→15:54)
[2020-01-09 06:39] LABS: INR 1.07 (0.87-1.13)
[2020-01-09 06:42] LABS: BUN/Creatinine Ratio 20; Blood Urea Nitrogen 16 mg/dL (9-20); Calcium 8.2 mg/dL (8.4-10.2); Hemolysis Index 6
[2020-01-09] MEDS ORDERED: ASPIRIN EC 325 MG TAB PO ONE (07:56)
[2020-01-09] MEDS ORDERED: SODIUM CHLORIDE 0.9% 500 ML 500 ML ONE ×2 (07:56→13:17)
[2020-01-09] MEDS ORDERED: SODIUM CHLORIDE 0.9% 500 ML 500 ML IV SCH (08:00)
[2020-01-09] MEDS: ASPIRIN EC 325 MG TAB PO SCH (08:00)
[2020-01-09] MEDS ORDERED: fentaNYL 100 MCG/2 ML INJ ONE (08:32)
[2020-01-09] MEDS ORDERED: MIDAZOLAM 2 MG/2 ML INJ ONE (08:32)
[2020-01-09] MEDS ORDERED: HEPARIN/NS 5000 UNIT/500ML 1,000 ML IR ONE (08:33)
[2020-01-09] MEDS ORDERED: HEPARIN 10,000 UNITS/10 ML VIAL ONE (08:33)
[2020-01-09] MEDS ORDERED: NITROGLYCERIN SYRINGE 3 ML ONE (08:33)
[2020-01-09] MEDS ORDERED: VERAPAMIL 5 MG/2 ML INJ ONE (08:33)
[2020-01-09] MEDS ORDERED: LIDOCAINE (2%) 20 MG/1 ML VIAL 20 ML MDV INFILTRATI ONE (08:33)
--- NOTE | 2020-01-09 09:48 | Progress Note ---
Assessment and Plan COVID-19 negative. S/p [facility] this AM which showed multivessel CAD. Pt to tx to [place] where Dr. Brock has agreed to accept for revascularization. The patient has been seen in conjunction with Dr. Mitchell Keenan who agrees with the assessment and plan of care. - Patient Problems (1) NSTEMI (non-ST elevated myocardial infarction) Current Visit: Yes Status: Acute (2) Abnormal ECG Current Visit: Yes Status: Acute (3) Suspected COVID-19 virus infection Current Visit: Yes Status: Acute Plan to address problem: COVID-19 negative (4) UTI (urinary tract infection) Current Visit: Yes Status: Acute (5) Sepsis Current Visit: Yes Status: Suspected (6) COPD (chronic obstructive pulmonary disease) Current Visit: Yes Status: Chronic (7) Hypoxia Current Visit: Yes Status: Acute (8) Lactic acidosis Current Visit: Yes Status: Acute (9) Elevated d-dimer Current Visit: Yes Status: Acute (10) CAD (coronary artery disease) Current Visit: Yes Status: Chronic Subjective Date of service: 01/09/20 Principal diagnosis: nstemi Interval history: pt for [facility] Objective Last Vital Signs Temp 97.5 F L 01/09/20 04:35 Pulse 81 01/09/20 04:35 Resp 18 01/09/20 04:35 BP 116/79 01/09/20 04:35 Pulse Ox 96 01/09/20 04:35 - Physical Examination General: Appears Well HEENT: Positive: PERRL, Normocephaly, Mucus Membranes Moist Neck: Positive: neck supple, trachea midline Cardiac: Positive: Reg Rate and Rhythm, S1/S2 Lungs: Positive: clear to auscultation Neuro: Positive: Grossly Intact Abdomen: Negative: Tender Skin: Negative: Rash Musculoskeletal: No Pain Extremities: Absent: edema - Labs and Meds Coagulation 01/08/20 01/09/20 Range/Units 13:30 05:03 PT 14.1 (12.2-14.9) Sec. INR 1.07 (0.87-1.13) APTT 93.7 H* (24.2-36.6) Sec. CBC 01/08/20 01/09/20 Range/Units 13:30 05:03 WBC 5.7 (4.5-11.0) K/mm3 RBC 3.36 L (3.65-5.03) M/mm3 Hgb 12.0 11.3 L (11.8-15.2) gm/dl Hct 36.4 34.5 L (35.5-45.6) % Plt Count 90 L 94 L (140-440) K/mm3 Comprehensive Metabolic Panel 01/09/20 Range/Units 05:03 Sodium 136 L (137-145) mmol/L Potassium 3.4 L (3.6-5.0) mmol/L Chloride 104.3 (98-107) mmol/L Carbon Dioxide 18 L (22-30) mmol/L BUN 16 (9-20) mg/dL Creatinine 0.8 (0.8-1.5) mg/dL Glucose 129 H (75-100) mg/dL Calcium 8.2 L (8.4-10.2) mg/dL - Imaging and Cardiology EKG: report reviewed, image reviewed - Telemetry EKG Rhythm: Sinus Rhythm - EKG Sinus rhythms and dysrhythmias: sinus rhythm Repolarization changes or abnormalities: ST or T wave suggestive of ischemia
[2020-01-09] MEDS: IPRATROPIUM/ALBUTEROL SULFATE 3 ML AMPUL.NEB IH SCH ×2 (09:59→14:02)
--- NOTE | 2020-01-09 10:05 | Progress Note ---
Assessment and Plan This is a 74-year-old male with known history of COPD presenting to the emergency room complaining of generalized weakness and shortness of breath. Denies any cough, no chest pain, denies any fever or chills, no nausea vomiting, no diarrhea, no abdominal pain, no hematuria or dysuria NSTEMI-elevated troponine Abnormal EKG belt builder consulted Nuclear stress test was cancelled due pending Covid 19 test. Will f/u with covid 19 result patient denies chest pain and shortness of breath S/p [facility] this AM which showed multivessel CAD. Pt to tx to [place] where Dr. Brock has agreed to accept for revascularization. Suspected Covid 19 Virus infection-Negative Continue Airborne and respiratory Isolation Monitor inflammatory maker patient on room air calm and not in any distress Elevated inflammatory [id number] 1327, LDH 190, CRP 1.80, and Ferrintin 672 ID following f Sepsis likely due to UTI Continue IV hydration with IV NS at 75 cc/hr elderly pt-monitor for fluid overload Continue empiric abx therapy urine and blood culture-f/u with result COPD-stable pt report tobacco use -quit 30 years ago pt on room-stable Hypokalemia-replaced Replace potassium PRN Am lab BMP Hypotension-bp stable Continue IV hydration S/p IV bolus-in ER DVT Prophylaxis-heparin 01/09/20 Stress test- S/p [facility] this AM which showed multivessel CAD. Pt to tx to [place] where Dr. Brock has agreed to accept for revascularization. Will transfer patient to [place] when bed is available. Subjective Principal diagnosis: nstemi Interval history: Patient seen-awake, on room air, not in any distress he denies any respiratory distress. Stress test ordered-not done-pending covid test result S/p [facility] this AM which showed multivessel CAD. Pt to tx to [place] where Dr. Brock has agreed to accept for revascularization. H Objective - Constitutional Vitals: Vital Signs - 12hr 01/08/20 01/09/20 01/09/20 23:27 04:35 09:51 Temperature 98.0 F 97.5 F L 98.5 F Pulse Rate 85 81 91 H Respiratory 18 18 25 H Rate Blood Pressure 112/66 116/79 124/79 O2 Sat by Pulse 94 96 Oximetry - Labs CBC & Chem 7: 01/09/20 05:03 01/09/20 05:03 Labs: Abnormal lab results 01/08/20 01/08/20 01/09/20 Range/Units 13:30 13:30 05:03 RBC 3.36 L (3.65-5.03) M/mm3 Hgb 11.3 L (11.8-15.2) gm/dl Hct 34.5 L (35.5-45.6) % MCV 103 H (84-94) fl MCH 34 H (28-32) pg RDW 16.7 H (13.2-15.2) % Plt Count 90 L 94 L (140-440) K/mm3 APTT 93.7 H* (24.2-36.6) Sec. Heparin Anti-Xa Level (0.3-0.7) U.I./ml Sodium (137-145) mmol/L Potassium (3.6-5.0) mmol/L Carbon Dioxide (22-30) mmol/L Glucose (75-100) mg/dL Calcium (8.4-10.2) mg/dL Troponin T (0.00-0.029) ng/mL 01/09/20 01/09/20 Range/Units 05:03 05:03 RBC (3.65-5.03) M/mm3 Hgb (11.8-15.2) gm/dl Hct (35.5-45.6) % MCV (84-94) fl MCH (28-32) pg RDW (13.2-15.2) % Plt Count (140-440) K/mm3 APTT (24.2-36.6) Sec. Heparin Anti-Xa Level 0.28 L (0.3-0.7) U.I./ml Sodium 136 L (137-145) mmol/L Potassium 3.4 L (3.6-5.0) mmol/L Carbon Dioxide 18 L (22-30) mmol/L Glucose 129 H (75-100) mg/dL Calcium 8.2 L (8.4-10.2) mg/dL Troponin T 0.163 H* D (0.00-0.029) ng/mL HEART Score - HEART Score Troponin: Troponin T 0.163 ng/mL (0.00-0.029) H* D 01/09/20 05:03
--- NOTE | 2020-01-09 10:14 | Cardiac Catherization Report ---
CARDIAC CATHETERIZATION REFERRING PHYSICIAN: Dr. Bell INDICATION FOR PROCEDURE: The patient is a very pleasant 74-year-old gentleman, who presented with shortness of breath. He is COVID negative, non-STEMI, referred for left heart catheterization. Risks, benefits, potential alternatives explained at length prior to obtaining informed consent. PROCEDURE IN DETAIL: The patient was brought to the catheterization lab in a postabsorptive state, prepped and draped in sterile fashion. Sudhakar's test in right hand was normal. A 2 mL of 2% lidocaine used to anesthetize the right wrist. A standard 6-Nepalese hydrophilic sheath used to cannulate the right radial artery via modified Seldinger technique. All exchanges performed to exchange a J-tip guidewire. JL3.5 catheter used to engage the left main. No dampening or ventricularization. Cineangiography performed in all projections. JR4 catheter was used to cross the aortic valve under fluoroscopic guidance. Left ventriculography performed in 30 SUÁREZ and 30 KOREAN projections via hand injections, catheter flushed. Manual pullback performed with continuous pressure monitoring. Catheter used to engage the right coronary. No dampening or ventricularization. Cineangiography performed in all projections. Next, we used the catheter to do selective left subclavian third order angiography and sub-selective DOMINGUEZ angiography. Next, catheter removed from the body of wire, sheath removed. Manual pressure used to achieve hemostasis. I directly supervised the administration of moderate sedation with fentanyl and Versed from 9:10 a.m. to 9:50 a.m. No immediate complications identified. DATA: Aortic pressure is 100/60, LV pressure is 100. LVP of 20 mmHg. Left ventriculography reveals moderate severe global left ventricular hypokinesis, estimated ejection fraction of 35-40%. No evidence of aortic stenosis, high normal LVEDP. The patient remained in normal sinus rhythm throughout the procedure. CORONARY ANATOMY: This is a right dominant system. Left main heavily calcified distally. There is a 25% distal left main stenosis, 90% ostial LAD stenosis, heavily calcified and involves the first diagonal. Left subclavian without significant disease. Right coronary is a moderate sized vessel, courses AV groove, distally bifurcates into posterior and posterolateral branches. The posterior descending artery is chronically occluded. Extensive left to right collaterals are identified. The left subclavian is patent. Left internal mammary artery is also patent. CONCLUSIONS: 1. Severe kar[place] coronary artery disease with 25% distal left main, 90% heavily calcified complex, ostial proximal LAD involving first diagonal. 2. 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 3. Moderate to severe global left ventricular hypokinesis, estimated ejection fraction of 35-40%. 4. No evidence of aortic stenosis. 5. Patent left subclavian. 6. Patent left internal mammary artery. The patient is clinically stable, chest pain free. Discussed with Dr. Brock. The patient will be transferred to [facility] for coronary artery bypass surgery for complete revascularization. He is stable for transfer at this point. Results of the procedure were explained at length to the patient. All questions were addressed. Further plans contingent on surgery. JOB# [id number] SARAH/JONNY
[2020-01-09] MEDS ORDERED: SODIUM CHLORIDE 0.9% 1000 ML 1,000 ML IV SCH (13:45)
--- NOTE | 2020-01-09 14:53 | Discharge Summary ---
Providers - Providers Date of Admission: 01/07/20 19:56 Date of discharge: 01/09/20 Attending physician: KASSIDY AMAYA 01/07/20 Consult to Cardiac Rehabilitation [CONS] Routine Reason For Exam: Phase I 01/07/20 22:11 Consult to Cardiology [CONS] Routine Consulting Provider: MAY LOO Reason For Exam: ELEVATED TROPONIN 01/09/20 09:49 Consult to Cardiac Rehabilitation [CONS] Routine Reason For Exam: Cardiac Rehab Evaluation Primary care physician: [employer] Hospitalization Condition: Critical Disposition: DC-30 STILL A PATIENT - Discharge Diagnoses (1) Abnormal ECG Status: Acute (2) Elevated troponin Status: Acute (3) Hypotension Status: Acute (4) NSTEMI (non-ST elevated myocardial infarction) Status: Acute (5) UTI (urinary tract infection) Status: Acute Core Measure Documentation - Palliative Care Palliative Care/ Comfort Measures: Not Applicable - Core Measures Any of the following diagnoses?: none (LHC done with multiple vessel occulution- d/c to [facility] for posible CABG) Exam - Constitutional Vitals: Temp Pulse Resp BP Pulse Ox 98.5 F 84 18 99/63 96 01/09/20 09:51 01/09/20 14:05 01/09/20 14:05 01/09/20 14:00 01/09/20 14:00 General appearance: Present: no acute distress - EENT Eyes: Present: PERRL ENT: hearing intact, clear oral mucosa - Neck Neck: Present: supple, normal ROM - Respiratory Respiratory effort: normal Respiratory: bilateral: CTA, diminished - Cardiovascular Heart Sounds: Present: S1 & S2. Absent: rub, click - Extremities Extremities: pulses symmetrical, No edema Peripheral Pulses: within normal limits - Abdominal General gastrointestinal: Present: soft, non-tender, non-distended, normal bowel sounds Male genitourinary: Present: normal - Integumentary Integumentary: Present: clear, warm, dry - Musculoskeletal Musculoskeletal: strength equal bilaterally, generalized weakness (Bilateral leg weakness) - Psychiatric Psychiatric: appropriate mood/affect, intact judgment & insight - Neurologic Neurologic: CNII-XII intact, moves all extremities - Allied Health Allied health notes reviewed: nursing Plan Activity: other (per condition after procedure) Follow up with: PRIMARY CARE, [Primary Care Provider] - 3-5 Days
[2020-01-09] MEDS: HEPARIN/ 0.45% NACL DRIP 25,000 UNIT/500 ML BAG IV SCH (15:54)
[2020-01-09 18:01] VITALS: BP 113/70
== END 2020-01-09 17:00 | disposition short-term general hospital (02) | DRG 871 ==
LOC: ED 12:54 → 3A 19:56 → 4A 01-08 17:43
PROVIDERS: ADMIT Internal Medicine Geriatric Medicine; ATTEND Internal Medicine
PROC: 4A023N7 Measurement of Cardiac Sampling and Pressure, Left Heart, Percutaneous Approach (ICD-10-PCS; principal; 2020-01-09)
PROC: B2111ZZ Fluoroscopy of Multiple Coronary Arteries using Low Osmolar Contrast (ICD-10-PCS; 2020-01-09)
PROC: B2151ZZ Fluoroscopy of Left Heart using Low Osmolar Contrast (ICD-10-PCS; 2020-01-09)
DX: A41.9 Sepsis, unspecified organism (principal); I21.4 Non-ST elevation (NSTEMI) myocardial infarction; N39.0 Urinary tract infection, site not specified; I95.9 Hypotension, unspecified; J44.9 Chronic obstructive pulmonary disease, unspecified; E78.2 Mixed hyperlipidemia; E87.6 Hypokalemia; Z20.828 Contact with and (suspected) exposure to other viral communicable diseases; I25.10 Atherosclerotic heart disease of native coronary artery without angina pectoris; Z87.891 Personal history of nicotine dependence
CPT/HCPCS: 36415; 71045; 71275; 80048; 80053; 80061; 81001; 82140; 82728; 82947; 83615; 83880; 84145; 84484; 85014; 85018; 85025; 85027; 85049; 85379; 85520; 85610; 85730; 86140; 87040; 87086; 93005; 93306; 93458; 94640; G0378; A9270-GY; C1894; J0692; J1644; J2250; J2920; J3010; J7030; J7040; Q9967; U0003-CS